=== PATIENT | female | born 1970 | race Caucasian/White ===

== ENCOUNTER → 2018-04-17 14:59 | Outpatient (CLI) | payer OTHER, SELFPAY | PROVIDERS: PCP Family Medicine; Visit Provider Internal Medicine Gastroenterology | DX: R19.7 Diarrhea, unspecified (principal) ==

== ENCOUNTER → 2018-04-18 14:44 | Outpatient (CLI) | payer OTHER, SELFPAY ==
[2018-04-18 17:55] LABS: Adenovirus F 40/41 Not Detected (Not Detect); Astrovirus Not Detected (Not Detect); Campylobacter Not Detected (Not Detect); Clostridium difficile toxin AB Not Detected (Not Detect); Cryptosporidium Not Detected (Not Detect); Cyclospora cayetanensis Not Detected (Not Detect); Entamoeba histolytica Not Detected (Not Detect); Enteroaggregative E.coli Not Detected (Not Detect); Enteropathogenic E.coli Not Detected (Not Detect); Enterotoxigenic E.coli It/st Not Detected (Not Detect); Giardia lamblia Not Detected (Not Detect); Norovirus GI/GII Not Detected (Not Detect); Plesiomonsa shigelloides Not Detected (Not Detect); Rotavirus A Not Detected (Not Detect); Salmonella Not Detected (Not Detect); Sapovirus Not Detected (Not Detect); Shiga-like toxin-prod E.coli Not Detected (Not Detect); Shigella/Enteroinvasive E.coli Not Detected (Not Detect); Vibrio Not Detected (Not Detect); Vibrio cholerae Not Detected (Not Detect); Yersinia enterocolitica Not Detected (Not Detect)
== END ==
PROVIDERS: Visit Provider Internal Medicine Gastroenterology
DX: R19.7 Diarrhea, unspecified (principal)
CPT/HCPCS: 87507

== ENCOUNTER → 2020-01-24 12:46 | Outpatient (CLI) | payer OTHER, SELFPAY ==
[2020-01-24 13:02] LABS: Add Manual Diff / Slide Review NO; Basophils Absolute Auto 0 /uL (0-100); Basophils Percent Auto 0.6 % (0-2); Eosinophils Absolute Auto 200 /uL (0-450); Eosinophils Percent Auto 2.8 % (2-4); Hematocrit 40.7 % (36-46); Hemoglobin 13.5 g/dL (12.0-16.0); Lymphocytes Absolute Auto 1600 /uL (1100-4500); Lymphocytes Percent Auto 20.4 % (25-40); Mean Corpuscular HGB Conc 33.3 % (30-36); Mean Corpuscular Hemoglobin 28.9 PG (26-34); Mean Corpuscular Volume 86.9 fL (80-100); Monocytes Absolute Auto 400 /uL (0-900); Monocytes Percent Auto 4.9 % (3-14); Neutrophils Absolute Auto 5500 /uL (1500-7000); Neutrophils Percent Auto 71.3 % (50-75); Platelet Count 199 X10^3/uL (150-400); Red Blood Cell Count 4.68 X10^6/uL (4.0-5.2); Red Cell Distribution Width 14.3 % (11.6-14.8); White Blood Cell Count 7.8 X10^3/uL (4.5-11.0)
[2020-01-24 13:14] LABS: Alanine Aminotransferase 13 IU/L (<35); Albumin 4.2 g/dL (3.5-5.0); Albumin Globulin Ratio 1.4 (1.0-2.8); Alkaline Phosphatase 82 U/L (38-126); Aspartate Aminotransferase 22 IU/L (14-36); BUN Creatinine Ratio 18.2 (6-22); Bilirubin Total 0.6 mg/dL (0.2-1.3); Blood Urea Nitrogen 12 mg/dL (7-17); Calcium 9.2 mg/dL (8.4-10.2); Carbon Dioxide 30 mmol/L (22-32); Chloride 104 mmol/L (98-107); Estimated Glomerular Filt Rate > 60.0 mL/min (>60); Globulin 2.9 g/dL (1.7-4.1); Glucose 94 mg/dL (70-100); HEMOLYSIS 18 (0-50); Potassium 3.8 mmol/L (3.4-5.1); Sodium 138 mmol/L (137-145); Total Protein 7.1 g/dL (6.3-8.2)
[2020-01-24 13:26] LABS: Troponin I < 0.012 ng/mL (0.01-0.034)
== END ==
PROVIDERS: PCP Family Medicine; Referring Provider Nurse Practitioner; Visit Provider Nurse Practitioner
DX: R42 Dizziness and giddiness (principal)
CPT/HCPCS: 36415; 80053; 84484; 85025

== ENCOUNTER 2020-01-26 12:51 | Outpatient (RCR) | payer OTHER, SELFPAY ==
--- NOTE | 2020-01-26 16:02 | PT.OIE ---
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) Past Medical History (Last Reviewed 01/12/18 @ 10:01 by Kirsten Rivera DO) Chicken pox (Resolved) Colitis (Chronic) Colon polyps (Resolved) Hayfever (Chronic) Ulcerative colitis (Resolved ~1989) Vaginal delivery (Resolved) Past Surgical History (Last Reviewed 01/12/18 @ 10:01 by Kirsten Rivera DO) History of esophagogastroduodenoscopy (EGD) (Resolved 09/18/12) History of intestinal surgery (Resolved 01/1969) Status post delivery (Resolved) Status post colonoscopy (Resolved 09/18/12) Visit Care Team Role Provider Type Kirsten Rivera DO Primary Care Provider Physician Specialty: [facility] Practice Address: [address] [place] [address], [place], [address] Email: [email or web address] Gen Sesay MD Attending Provider Physician Referring Provider Specialty: Ear, Nose, Throat Address: [address] [place] [address], [id number] Email: [email or web address] Initial Evaluation PT-OP-A Visit Information Start: 01/26/20 07:29 Freq: Status: Active Protocol: Document 01/26/20 13:02 MB (Rec: 01/26/20 13:18 MB [id number]) Out-Patient Physical Therapy Visit Information Visit Information Visit Type Initial Evaluation Visit Start Time 13:02 Visit Stop Time 13:52 Total Visit Minutes 50 Visit Number 1 Evaluation Information Evaluation Date 01/26/20 PT-OP-B Current Condition Start: 01/26/20 07:29 Freq: Status: Active Protocol: Document 01/26/20 13:02 MB (Rec: 01/26/20 13:18 MB [id number]) Current Condition History of Current Condition Onset Date 2.5 weeks ago Current Complaints Dizzy History of Current Condition Pt jumped in the water, felt water in her ears, then went to get her ears irrigated. She took antibiotic ear drops in her left ear for 9 days and felt great. Four days later, she had severe dizziness when jumping up to play with her dog. She reports spinning sensation. Pt went to see Dr. Sesay, ENT. He stated that her ears look good. She states that he recommended PT. Pt states that she feels that there is something in her ears . Pt takes Flonase spray and allergy medicine. She feels ear pressure. She reports vision changes when she used a patch behind her left ear. She did this three days. She felt cotton mouth. She has a history of sea sickness. Pt denies: numbness/tingling, vision changes, history of concussion, performance of sit -ups, anemia, B12 deficiency, weakness, hearing change, eye pressure changes, trouble swallowing, recent overhead lifting, tinnitus, history of whiplash and chiropractor care and TMJ (jaw problems), headache. Pt sleeps on her side and stomach. PT-OP-C Subjective Start: 01/26/20 07:29 Freq: Status: Active Protocol: Document 01/26/20 13:02 MB (Rec: 01/26/20 15:59 MB [id number]) OP-PT Subjective Patient Comments Patient Comments See history of current condition Patient Questionnaires Dizziness Handicap Inventory DHI Score 56 DHI Functional Impairment 40 to 59% Impaired (Score 40- 59) PT-OP-K Range of Motion Start: 01/26/20 07:29 Freq: Status: Active Protocol: Document 01/26/20 13:02 MB (Rec: 01/26/20 15:59 MB [id number]) Cervical Spine Range of Motion Cervical Spine Active Testing Position Sitting Comments All ranges WNLs PT-OP-M Strength Start: 01/26/20 07:29 Freq: Status: Active Protocol: Document 01/26/20 13:02 MB (Rec: 01/26/20 15:59 MB [id number]) Shoulder Strength Shoulder Manual Muscle Testing Left Flexion 5 Normal Abduction (C5) 5 Normal Right Flexion 5 Normal Abduction (C5) 5 Normal Elbow/Forearm Strength Elbow and Forearm Manual Muscle Testing Left Flexion (C6) 5 Normal Extension (C7) 5 Normal Right Flexion (C6) 5 Normal Extension (C7) 5 Normal PT-OP-O Vestibular Start: 01/26/20 07:29 Freq: Status: Active Protocol: Document 01/26/20 13:02 MB (Rec: 01/26/20 15:59 MB [id number]) Vestibular Assessment Visual Testing Smooth Pursuits Horizontal Normal Smooth Pursuits Vertical Normal Saccades Horizontal Normal Saccades Vertical Normal Gaze Evoked Nystagmus With Fixation Negative Thrust Head Positive Left Convergence Test WNL Spontaneous Nystagmus Negative Positional Testing Jaleesa-Hallpike Negative Left,Negative Right Rolling Test Negative Left,Negative Right Comments Vestibular Comments B finger to nose normal, B rapid supination and pronation normal. Pt's sacade delay with thrust left is very prolonged. Holding nostrils together and blowing into nose causes pt to feel air moving out of her right tear duct. She reports a history of this. Negative orthostatic hypotension testing with the following BP and HR in LUE: supine 111/74, 81; standing 117/81, 103; standing 30 sec 108/77, 100; standing 1' 102/ 77, 100; standing 2' 100/72, 103; standing 3' 111/79, 106 PT-OP-Q Treatments Start: 01/26/20 07:29 Freq: Status: Active Protocol: Document 01/26/20 13:02 MB (Rec: 01/26/20 15:59 MB [id number]) Self-Care/Home Management Treatment Education Other Education Extensive ed on anatomy and function of vestibular system, BPPV, VOR hypofunction findings, provided 4 handouts from the [employer] vestibular SIG regarding PT and the VOR, the balance system and unilateral vestibular hypofunction. Proper sleeping position with cervical and pillow support. PT-OP-T Assessment and Plan Start: 01/26/20 07:29 Freq: Status: Active Protocol: Document 01/26/20 13:02 MB (Rec: 01/26/20 15:59 MB [id number]) Physical Therapy Assessment Rehab Potential Rehabilitation Potential Good Evaluation Complexity Number of Personal Factors/Comorbidities 1-2 Number of Body Systems Impaired 1-2 Clinical Presentation at Evaluation Stable Impairments Impairments Balance,Posture,Vestibular Goals 3 Snf Goal (LTG) Pt will perform progressive HEP with I including VOR, balance and postural exercises to improve VOR function and posture by 03/12/2020. LTG Duration 6 weeks 2 Director Music Goal (LTG) Pt will perform WNLs on FGA to reflect normal balance by . LTG Duration 6 weeks 1 Snf Goal (LTG) Pt will present with a DHI score reflecting low perception of handicap to improve quality of life and safe return to work and normal activities by 03/12/2020. LTG Duration 6 weeks Assessment Summary Assessment Pt is a 50 y/o female presenting with onset of dizziness after diving into masters, feeling water in her ears, receiving ear irrigation with water and then receiving 9 days of antibiotic ear drops. Pt con't to report a feeling of needing to clean out her sinuses. She takes Flonase and an allergy pill at baseline. BPPV testing is negative today. Oculomotor and coordination tests are normal . Her BP does not drop enough to technically report orthostasis but it does drop and her HR increases to the low 100 BPM with rapid position change. She presents with significant saccade lag with left head thrust, indicating VOR hypofunction. She will benefit from PT for VOR, postural and balance training. A curious finding on exam is that when PT asks pt to hold nostrils and blow forcefully (to check for hydrops or fistula), pt reports air leaking through her right tear duct. She states this is normal for her. She may benefit from further ENT work-up regarding her complaints of fullness, allergies and this report. Balance testing deferred today d/t triaging pt needs. Will perform in future treatments. Physical Therapy Plan Frequency and Duration Frequency of Treatment 4 treatments Duration of Treatment 4 treatments Plan of Care Start Date 01/26/20 Plan of Care End Date 03/12/20 Therapeutic Interventions Therapeutic Interventions Balance Training,Canalithic Repositioning,Gait Training, Home Exercise Program,Manual Therapy,Neuromuscular Re- education,Patient/Caregiver Education,Self-Care/Home Management,Soft Tissue Mobilization,Taping, Therapeutic Activities, Therapeutic Exercises, Vestibular Rehabilitation Next Visit Focus/Plan Next Note Type Treatment Note Next Visit Plan DVA eye chart VOR testing and HEP, balance testing (FGA)
--- NOTE | 2020-01-26 16:02 | PT.OPPOC ---
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) Visit Care Team Role Provider Type Kirsten Rivera DO Primary Care Provider Physician Specialty: Family Practice Address: [address] [place] [address], [facility] [place], [address] Email: [email or web address] Gen Sesay MD Attending Provider Physician Referring Provider Specialty: Ear, Nose, Throat Address: [address] [place] [address], [id number] Email: [email or web address] Plan Of Care PT-OP-T Assessment and Plan Start: 01/26/20 07:29 Freq: Status: Active Protocol: Document 01/26/20 13:02 MB (Rec: 01/26/20 15:59 MB [id number]) Physical Therapy Assessment Rehab Potential Rehabilitation Potential Good Evaluation Complexity Number of Personal Factors/Comorbidities 1-2 Number of Body Systems Impaired 1-2 Clinical Presentation at Evaluation Stable Impairments Impairments Balance,Posture,Vestibular Goals 3 [facility] Goal (LTG) Pt will perform progressive HEP with I including VOR, balance and postural exercises to improve VOR function and posture by 03/12/2020. LTG Duration 6 weeks 2 [facility] Goal (LTG) Pt will perform WNLs on FGA to reflect normal balance by . LTG Duration 6 weeks 1 [employer] Goal (LTG) Pt will present with a DHI score reflecting low perception of handicap to improve quality of life and safe return to work and normal activities by 03/12/2020. LTG Duration 6 weeks Assessment Summary Assessment Pt is a 50 y/o female presenting with onset of dizziness after diving into masters, feeling water in her ears, receiving ear irrigation with water and then receiving 9 days of antibiotic ear drops. Pt con't to report a feeling of needing to clean out her sinuses. She takes Flonase and an allergy pill at baseline. BPPV testing is negative today. Oculomotor and coordination tests are normal . Her BP does not drop enough to technically report orthostasis but it does drop and her HR increases to the low 100 BPM with rapid position change. She presents with significant saccade lag with left head thrust, indicating VOR hypofunction. She will benefit from PT for VOR, postural and balance training. A curious finding on exam is that when PT asks pt to hold nostrils and blow forcefully (to check for hydrops or fistula), pt reports air leaking through her right tear duct. She states this is normal for her. She may benefit from further ENT work-up regarding her complaints of fullness, allergies and this report. Balance testing deferred today d/t triaging pt needs. Will perform in future treatments. Physical Therapy Plan Frequency and Duration Frequency of Treatment 4 treatments Duration of Treatment 4 treatments Plan of Care Start Date 01/26/20 Plan of Care End Date 03/12/20 Therapeutic Interventions Therapeutic Interventions Balance Training,Canalithic Repositioning,Gait Training, Home Exercise Program,Manual Therapy,Neuromuscular Re- education,Patient/Caregiver Education,Self-Care/Home Management,Soft Tissue Mobilization,Taping, Therapeutic Activities, Therapeutic Exercises, Vestibular Rehabilitation Next Visit Focus/Plan Next Note Type Treatment Note Next Visit Plan DVA eye chart VOR testing and HEP, balance testing (FGA) Plan of Care Dates Plan of Care Start Date 01/26/20 Plan of Care End Date 03/12/20 Electronically Signed by: Nehal Miner, PT 01/26/20 9024 Please Sign and Return: I have reviewed this Plan of Care and certify that the skilled therapy services above are required to meet the patient?s needs. Physician Signature Date Printed Name and Credentials Clinical Instructor Signature Printed Name and Credentials
--- NOTE | 2020-02-13 15:24 | PT.OPDS ---
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, [facility] [place], [address] Email: [email or web address] Gen Sesay MD Attending Provider Physician Referring Provider Specialty: Ear, Nose, Throat Address: [address] [place] [address], [address] Email: [email or web address] Visit Number Visit Number 1 Discharge Summary PT-OP-B Current Condition Start: 01/26/20 07:29 Freq: Status: Active Protocol: Document 01/26/20 13:02 MB (Rec: 01/26/20 13:18 MB [id number]) Current Condition History of Current Condition Onset Date 2.5 weeks ago Current Complaints Dizzy History of Current Condition Pt jumped in the water, felt water in her ears, then went to get her ears irrigated. She took antibiotic ear drops in her left ear for 9 days and felt great. Four days later, she had severe dizziness when jumping up to play with her dog. She reports spinning sensation. Pt went to see Dr. Sesay, ENT. He stated that her ears look good. She states that he recommended PT. Pt states that she feels that there is something in her ears . Pt takes Flonase spray and allergy medicine. She feels ear pressure. She reports vision changes when she used a patch behind her left ear. She did this three days. She felt cotton mouth. She has a history of sea sickness. Pt denies: numbness/tingling, vision changes, history of concussion, performance of sit -ups, anemia, B12 deficiency, weakness, hearing change, eye pressure changes, trouble swallowing, recent overhead lifting, tinnitus, history of whiplash and chiropractor care and TMJ (jaw problems), headache. Pt sleeps on her side and stomach. PT-OP-C Subjective Start: 01/26/20 07:29 Freq: Status: Active Protocol: Document 01/26/20 13:02 MB (Rec: 01/26/20 15:59 MB [id number]) OP-PT Subjective Patient Comments Patient Comments See history of current condition Patient Questionnaires Dizziness Handicap Inventory DHI Score 56 DHI Functional Impairment 40 to 59% Impaired (Score 40- 59) PT-OP-K Range of Motion Start: 01/26/20 07:29 Freq: Status: Active Protocol: Document 01/26/20 13:02 MB (Rec: 01/26/20 15:59 MB [id number]) Cervical Spine Range of Motion Cervical Spine Active Testing Position Sitting Comments All ranges WNLs PT-OP-M Strength Start: 01/26/20 07:29 Freq: Status: Active Protocol: Document 01/26/20 13:02 MB (Rec: 01/26/20 15:59 MB [id number]) Shoulder Strength Shoulder Manual Muscle Testing Left Flexion 5 Normal Abduction (C5) 5 Normal Right Flexion 5 Normal Abduction (C5) 5 Normal Elbow/Forearm Strength Elbow and Forearm Manual Muscle Testing Left Flexion (C6) 5 Normal Extension (C7) 5 Normal Right Flexion (C6) 5 Normal Extension (C7) 5 Normal PT-OP-O Vestibular Start: 01/26/20 07:29 Freq: Status: Active Protocol: Document 01/26/20 13:02 MB (Rec: 01/26/20 15:59 MB [id number]) Vestibular Assessment Visual Testing Smooth Pursuits Horizontal Normal Smooth Pursuits Vertical Normal Saccades Horizontal Normal Saccades Vertical Normal Gaze Evoked Nystagmus With Fixation Negative Thrust Head Positive Left Convergence Test WNL Spontaneous Nystagmus Negative Positional Testing Merlin-Hallpike Negative Left,Negative Right Rolling Test Negative Left,Negative Right Comments Vestibular Comments B finger to nose normal, B rapid supination and pronation normal. Pt's sacade delay with thrust left is very prolonged. Holding nostrils together and blowing into nose causes pt to feel air moving out of her right tear duct. She reports a history of this. Negative orthostatic hypotension testing with the following BP and HR in LUE: supine 111/74, 81; standing 117/81, 103; standing 30 sec 108/77, 100; standing 1' 102/ 77, 100; standing 2' 100/72, 103; standing 3' 111/79, 106 PT-OP-T Assessment and Plan Start: 01/26/20 07:29 Freq: Status: Active Protocol: Document 02/13/20 15:23 MB (Rec: 02/13/20 15:24 MB [id number]) Physical Therapy Plan Discharge Physical Therapy Discharge Reasons Patient Request Discharge Comments Pt offered appointment by front office and she states that she does not need anymore vestibular PT. Will d/c PT.
== END 2020-03-01 12:56 ==
LOC: PHYS 12:51
PROVIDERS: PCP Family Medicine; Referring Provider Otolaryngology; Visit Provider Otolaryngology
DX: H81.22 Vestibular neuronitis, left ear (principal)
CPT/HCPCS: 97162; 97535

== ENCOUNTER → 2020-02-26 15:27 | Outpatient (CLI) | payer OTHER, SELFPAY ==
--- NOTE | 2020-02-26 15:29 | DI.MG.S_ITS ---
BILATERAL DIGITAL SCREENING MAMMOGRAM 3D/2D WITH CAD: 02/26/2020 CLINICAL: Routine screening. Comparison is made to exams dated: 07/06/2015 mammogram, 08/22/2013 mammogram, and 04/22/2012 mammogram - [facility]. The tissue of both breasts is heterogeneously dense. This may lower the sensitivity of mammography. Current study was also evaluated with a Computer Aided Detection (CAD) system. No significant masses, calcifications, or other findings are seen in either breast. There has been no significant interval change. IMPRESSION: NEGATIVE There is no mammographic evidence of malignancy. A 1 year screening mammogram is recommended. This exam was interpreted at Station ID: [id number]. NOTE: For mammograms, a report in lay terms will be sent to the patient. Approximately 15% of breast malignancies will not be visualized mammographically. In the management of a palpable breast mass, a negative mammogram must not discourage biopsy of a clinically suspicious lesion. Electronically Signed By: Janak wu/daniel:02/26/2020 16:37:05 letter sent: Normal Exam ACR BI-RADS Category 1: Negative [id number]
== END ==
PROVIDERS: PCP Family Medicine; Referring Provider Family Medicine; Visit Provider Family Medicine
DX: Z12.31 Encounter for screening mammogram for malignant neoplasm of breast (principal)
CPT/HCPCS: 77063; 77067

== ENCOUNTER 2020-12-07 08:52 | Day surgery (SDC) | payer OTHER, SELFPAY ==
--- NOTE | 2020-12-07 | PATH_ITS ---
[facility] Accession Number: [id number] . 01 Material submitted: . PART A: colon - ASCENDING BIOPSY PART B: colon - TRANSVERSE BIOPSY PART C: colon - DESCENDING BIOPSY PART D: colon - SIGMOID BIOPSY PART E: rectum - RECTAL BIOPSY . 01 Clinical history: . SDC . 02 Diagnosis: A. Ascending Colon, Biopsy: Colonic mucosa with no significant diagnostic abnormality. Negative for active inflammation, granulomas, dysplasia, and malignancy. . B. Transverse Colon, Biopsy: Chronic colitis with moderate activity and focal erosion; please see comment. Negative for granulomata, dysplasia or malignancy. . C. Descending Colon, Biopsy: Chronic colitis with moderate activity. Negative for granulomata, dysplasia or malignancy. . D. Sigmoid Colon, Biopsy: Chronic colitis with moderate activity and focal erosion. Negative for granulomata, dysplasia or malignancy. . E. Rectum, Biopsy: Colonic mucosa with no significant diagnostic abnormality. Negative for active inflammation, granulomas, dysplasia, and malignancy. [facility] 12/10/2020 1144 Local . 02 Comment: The overall histologic findings are consistent with the clinical history of ulcerative colitis. . 02 Electronically signed: . Abimael Strickland MD, PhD, Pathologist NPI- [id number] . 01 Gross description: . Part A: ASCENDING BIOPSY: Received in formalin are multiple fragment(s) of bunch, soft tissue measuring 1.8 x 0.3 x 0.1 cm in aggregate submitted entirely in 1 cassette(s) Part B: TRANSVERSE BIOPSY: Received in formalin are 2 fragment(s) of bunch, soft tissue measuring 0.2 x 0.2 x 0.2 cm to 0.2 x 0.2 x 0.2 cm submitted entirely in 1 cassette(s) Part C: DESCENDING BIOPSY: Received in formalin are 2 fragment(s) of bunch, soft tissue measuring 0.3 x 0.1 x 0.1 cm to 0.1 x 0.1 x 0.1 cm submitted entirely in 1 cassette(s) Part D: SIGMOID BIOPSY: Received in formalin are 2 fragment(s) of bunch, soft tissue measuring 0.2 x 0.2 x 0.1 cm to 0.1 x 0.1 x 0.1 cm submitted entirely in 1 cassette(s) Part E: RECTAL BIOPSY: Received in formalin is 1 fragment(s) of bunch, soft tissue measuring 0.1 x 0.1 x 0.1 cm submitted entirely in 1 cassette(s) /AMI 12/08/2020 0805 Local . 02 Pathologist provided ICD-10: K51.00 . 02 CPT . 118858, [id number], 280277, [id number], 992189 Performed at: 01 [facility] [address] [facility], [place], [place] [id number] MD Janak Perdomo MD Phone: [phone] Performed at: 02 [facility] [address] [place], [place] [id number] MD Monet Woody MD Phone: [phone]
[2020-12-07 09:15] VITALS: BP 132/77; PULSE 87; RESP 18; TEMP 37.5; O2SAT 98
[2020-12-07] MEDS: SODIUM CHLORIDE 0.9% 1,000 ML 84 ML IV (09:43)
--- NOTE | 2020-12-07 09:55 | P.HP_ITS ---
History of Present Illness History of Present Illness Date Patient Seen: 12/07/20 Time Patient Seen: 09:55 Chief complaint: SDC Narrative: I reviewed recent office notes. Flaring symptoms. On mesalamine and 40mg prednisone. Patient History Medical History Chicken pox Colitis Colon polyps Hayfever Ulcerative colitis (~1989) Vaginal delivery Surgical History History of esophagogastroduodenoscopy (EGD) (09/18/12) History of intestinal surgery (01/1969) Status post delivery Status post colonoscopy (09/18/12) Comment: required anesthesia at last exam Family & Social History Family History Father Age: 77 Glaucoma High cholesterol Mother Myelodysplasia (myelodysplastic syndrome) Social History: household members family lives independently Yes Tobacco & Substance use: Smoking Status Never smoker alcohol intake never alcohol intake frequency holiday/special occasion Substance Use Type does not use Meds Home Medications and Allergies Home Medications Medication Instructions Recorded Confirmed Type vitamin B complex (B TID #0 02/14/16 01/12/20 History Complex-Vitamin B12) Lactobacillus acidophilus 1 tab PO TID #0 02/15/16 01/12/20 History mometasone 50 mcg/actuation nasal 2 spray INTRANASAL QDAY #17 gm 02/26/17 01/12/20 Rx spray (Nasonex) [id number] 3.5 4 drp OTIC (EAR) TID #10 ml 01/12/20 01/12/20 Rx mg/mL-10,000 unit/mL-1 % ear solution scopolamine base 1 mg over 3 days 1 patch TOPICAL Q72H #1 box 01/23/20 Rx transdermal patch (Transderm-Scop 1.5 mg transdermal patch () PROGESTERONE 100mg/ml 40 mg TOPICAL HS #30 day 07/30/20 Rx Biest 50/50 0.2 mg TOPICAL QAM #30 day 08/02/20 Rx Allergies Allergy/AdvReac Type Severity Reaction Status Date / Time No Known Drug Allergies Allergy Unknown Verified 01/12/20 11:01 Review of Systems Review of Systems ROS: Yes All systems reviewed with the patient and are negative except as otherwise documented Exam Vital Signs (past 8 hours): - 12/07/20 09:15 Temperature 99.5 F Pulse Rate 87 Respiratory Rate 18 Blood Pressure 132/77 Pulse Oximetry 98 Oxygen Delivery Method Room Air Const General: cooperative and comfortable Orientation: alert HENMT Head: normocephalic Ears: external ears normal Nose: external nose normal Face and sinus: normal facial exam Mouth: oral mucosae normal Eyes General: appearance normal, both eyes and all related structures Neck Neck: normal visual inspection Chest Chest: normal inspection of the chest Resp Effort & Inspection: normal respiratory effort Auscultation: clear to auscultation bilaterally Cardio Rate: regular rate Rhythm: regular rhythm Heart Sounds: no murmurs GI Inspection: normal to inspection Palpation: soft and No tender Auscultation: normal bowel sounds Skin General: no rashes or lesions noted and No jaundice Neuro General: patient alert and moves all extremities Cognition: normal cognition Speech: speech normal Extrem General: no pedal edema Psych Appearance: grossly normal Assessment & Plan Assessment & Plan narrative: Flaring Colitis. Colonoscopy to evaluate current status in anticipation of probable medication change to [facility]. I have requested anesthesia in light of prior failed procedures without anesthesia.
--- NOTE | 2020-12-07 09:58 | PM.PREOP ---
Pre-operative Note COVID-19 COVID-19 status: Negative Result date/Date tested (Pos, Neg/Pending): 12/05/20 Interval Note History & Physical reviewed/Exam performed by Physician: Yes Changes to H&P: No ASA Class (for procedural sedation): II
--- NOTE | 2020-12-07 11:18 | PM.OP.ENDO ---
Operative Date/Time/Diagnoses Date of procedure: 12/07/20 Time of procedure: 11:18 Pre-op diagnosis: Ulcerative colitis Post-op diagnosis: same Procedure & Clinicians Study performed: Colonoscopy with biopsies Same procedure as scheduled: Yes Indications: Flaring ulcerative colitis Surgeon: Benja Worthington Procedure Notes SCOAP/Timeout: Done Procedure in detail: After the risks and benefits were explained, written and verbal informed consent was obtained. The patient was brought into the procedure room and placed into the left lateral decubitus position. MAC was applied. Digital rectal examination was accomplished. The scope was introduced into the patient and advanced under direct visualization to the cecum as identified by the appendiceal orifice and ileocecal valve. The scope was slowly withdrawn to carefully examine the mucosa for any defects or lesions. Comprehensive imaging was accomplished throughout the rectum including the dentate line. The colon was decompressed, the scope was then removed from the patient who tolerated the procedure well. Scope withdrawal time: 11 minutes Sedation minutes: 33 Complications: none Impression: There was evidence of some mild patchy proctitis. Some of the areas in the rectum appeared to be reasonably spared likely as a consequence of her regular Rowasa enema therapy. From the rectosigmoid junction up to just beyond the splenic flexure and distal transverse there was evidence of moderate inflammation characterized by erythema exudates and some friability. The from the distal transverse all the way to cecum the mucosa appeared normal. The terminal ileum was interrogated and appeared normal. Segmental biopsies were acquired on withdrawal from the ascending, transverse (distally) descending, sigmoid, and rectum. Navigation all the way to cecum was extremely difficult. The patient has a very tortuous colon lay out. We used elements of abdominal pressure and the scope stiffening ketty. Endoscopic diagnosis 1. Mild to moderate active procto colitis 2. Normal-appearing terminal ileum 3. Normal-appearing right colon 4. Challenging navigation Post-procedure Plan for aftercare: 1. Await histopathology 2. Short-term follow-up GI clinic to discuss possible transition to Entyvio 3. In the interim continue mesalamine oral and rectal preparations 4. For now continue prednisone and initiate a taper as soon as is clinically possible. Follow up: weeks Disposition: PACU
[2020-12-07 11:23] VITALS: BP 121/77; PULSE 82; RESP 12; TEMP 37.1; O2SAT 99
[2020-12-07 11:40] VITALS: BP 115/76; PULSE 72; RESP 20; TEMP 36.7; O2SAT 98
--- NOTE | 2020-12-07 15:34 | SUR.PHASEII ---
Pt came straight to Phase [address] Prieto, pt arrived drowsy, no complaints. When pt ready to go ride called, belly soft and tolerated liquids.
== END 2020-12-07 11:50 | disposition home or self-care (01) ==
PROVIDERS: PCP Family Medicine; Referring Provider Internal Medicine Gastroenterology; Visit Provider Internal Medicine Gastroenterology
PROC: 0DJD8ZZ Inspection of Lower Intestinal Tract, Via Natural or Artificial Opening Endoscopic (ICD-10-PCS; CPT 45378; principal; 2020-12-07 10:00)
DX: K51.00 Ulcerative (chronic) pancolitis without complications (principal)
CPT/HCPCS: 45380; J2704

== ENCOUNTER → 2021-04-20 09:28 | Outpatient (CLI) | payer OTHER, SELFPAY | PROVIDERS: PCP Family Medicine; Visit Provider Specialist | DX: N13.30 Unspecified hydronephrosis (principal); R30.0 Dysuria; Z87.440 Personal history of urinary (tract) infections | CPT/HCPCS: 81002; 87086 ==

== ENCOUNTER → 2021-05-10 10:55 | Outpatient (CLI) | payer OTHER, SELFPAY ==
[2021-05-10 11:33] LABS: Add Manual Diff / Slide Review NO; Basophils Absolute Auto 100 /uL (0-100); Basophils Percent Auto 0.6 % (0-2); Eosinophils Absolute Auto 200 /uL (0-450); Eosinophils Percent Auto 1.6 % (2-4); Hematocrit 34.5 % (36-46); Hemoglobin 10.6 g/dL (12.0-16.0); Lymphocytes Absolute Auto 2000 /uL (1100-4500); Lymphocytes Percent Auto 13.3 % (25-40); Mean Corpuscular HGB Conc 30.6 % (30-36); Mean Corpuscular Hemoglobin 23.1 PG (26-34); Mean Corpuscular Volume 75.5 fL (80-100); Monocytes Absolute Auto 400 /uL (0-900); Monocytes Percent Auto 2.5 % (3-14); Neutrophils Absolute Auto 12500 /uL (1500-7000); Platelet Count 374 X10^3/uL (150-400); Red Blood Cell Count 4.56 X10^6/uL (4.0-5.2); Red Cell Distribution Width 16.8 % (11.6-14.8); White Blood Cell Count 15.2 X10^3/uL (4.5-11.0)
[2021-05-10 11:46] LABS: Alanine Aminotransferase 13 IU/L (<35); Albumin 3.9 g/dL (3.5-5.0); Albumin Globulin Ratio 1.3 (1.0-2.8); Alkaline Phosphatase 55 U/L (38-126); Aspartate Aminotransferase 19 IU/L (14-36); BUN Creatinine Ratio 19.4 (6-22); Bilirubin Total 0.5 mg/dL (0.2-1.3); Blood Urea Nitrogen 13 mg/dL (7-17); Calcium 9.3 mg/dL (8.4-10.2); Carbon Dioxide 31 mmol/L (22-32); Chloride 100 mmol/L (98-107); Estimated Glomerular Filt Rate > 60.0 mL/min (>60); Glucose 96 mg/dL (70-100); HEMOLYSIS 18 (0-50); Potassium 4.4 mmol/L (3.4-5.1); Sodium 134 mmol/L (137-145); Total Protein 6.9 g/dL (6.3-8.2)
== END ==
PROVIDERS: PCP Family Medicine; Referring Provider Internal Medicine; Visit Provider Internal Medicine
DX: K51.019 Ulcerative (chronic) pancolitis with unspecified complications (principal)
CPT/HCPCS: 36415; 80053; 85025

== ENCOUNTER → 2021-05-17 12:05 | Outpatient (CLI) | payer OTHER, SELFPAY ==
--- NOTE | 2021-05-17 12:06 | DI.NM.S_ITS ---
PROCEDURE: [place] RENAL FUNCTION W LASIX RADIOPHARMACEUTICAL: 9.7 mCi Tc-99m MAG3 IV and 40 mg furosemide IV. INDICATIONS: right hydronephrosis TECHNIQUE: The patient was hydrated orally before the examination was begun. After intravenous administration of Tc-99m MAG3, posterior abdominal radionuclide angiogram and sequential (1 minute each frame) renal images were obtained. A time-activity curve for each kidney was generated and analyzed. To evaluate for obstruction, the patient was given 40 mg furosemide via slow intravenous injection after the start of the examination. Sequential images were obtained for up to an additional 20 minutes. COMPARISON: Outside Facility, , CT ABDOMEN/PELVIS WITH CONTRAST, 03/07/2021, 15:40. [facility], [place], RENAL IMAGING WITH LASIX, 03/22/2016, 10:18. FINDINGS: Perfusion: There is normal vascular flow to both kidneys. Morphology: There is moderate right hydronephrosis. The ureters and bladder fill with tracer, and appear normal. Function: Both kidneys demonstrate normal cortical tracer uptake, with [id number] activity ranging from 3 to 5 minutes. The right kidney contributes 49.5% of total renal function. The left kidney contributes 50.1% of total renal function. This is compared to 51.7% and 48.3. Lasix stimulation: After diuretic administration, there is prompt clearance of tracer activity from the renal collecting systems in both kidneys. The half-time of emptying of tracer activity from the right pelvicaliceal system is unable to be calculated as at the end of imaging at head not achieved time of half max. The half-time of emptying from the left pelvicaliceal system is 5.1 minutes compared to 7.7 minutes on prior exam. Normal emptying half-times are less than 10 minutes; borderline ranges are from 10 to 20 minutes. IMPRESSION: 1. 49.5% right and 50.5% left renal function. 2. Half-time of tracer emptying was unable to be calculated on right as described above. This is considered greater emptying. 3. Moderate right hydronephrosis. Dictated by: Lanie Early M.D. on 05/17/2021 at 20:35 Approved by: Lanie Early M.D. on 05/17/2021 at 20:39
== END ==
PROVIDERS: PCP Family Medicine; Referring Provider Specialist; Visit Provider Specialist
DX: N13.30 Unspecified hydronephrosis (principal); Z87.440 Personal history of urinary (tract) infections
CPT/HCPCS: 78708; A9562

== ENCOUNTER → 2021-05-23 14:13 | Outpatient (CLI) | payer OTHER, SELFPAY ==
--- NOTE | 2021-05-23 14:14 | DI.US.S_ITS ---
PROCEDURE: US ABDOMEN LIMITED INDICATIONS: ABNORMAL LABS TECHNIQUE: Real-time focused scanning was performed of the abdomen, with image documentation. COMPARISON: Outside Facility, [place], CT ABDOMEN/PELVIS WITH CONTRAST, 03/07/2021, 15:40. FINDINGS: The liver is normal in size and echogenicity. Hepatopetal flow is seen in the main portal vein. The gallbladder appears contracted. No gallstones are seen. No pericholecystic fluid or sonographic Ordonez sign. The intrahepatic bile ducts are within normal limits. The common bile duct is borderline in size, measuring up to 7 mm in diameter. Right-sided hydronephrosis is noted, as seen on CT from 03/07/2021. IMPRESSION: 1. Contracted appearance of the gallbladder without gallstones or additional signs of active inflammation. 2. Borderline size of the common bile duct is nonspecific. If there are clinical or laboratory signs of biliary obstruction, an MRCP could be obtained for further evaluation. 3. Right-sided hydronephrosis, not significantly changed when compared to the CT from 03/07/2021. Dictated by: Delvis Rudolph M.D. on 05/23/2021 at 18:24 Approved by: Delvis Rudolph M.D. on 05/23/2021 at 18:31
[2021-05-23 16:52] LABS: Alanine Aminotransferase 163 IU/L (<35); Albumin 3.9 g/dL (3.5-5.0); Albumin Globulin Ratio 1.4 (1.0-2.8); Alkaline Phosphatase 270 U/L (38-126); Aspartate Aminotransferase 50 IU/L (14-36); Bilirubin Total 0.3 mg/dL (0.2-1.3); Bilirubin Unconjugated 0.3 mg/dL (0.0-1.1); Globulin 2.7 g/dL (1.7-4.1); HEMOLYSIS < 15 (0-50); Total Protein 6.6 g/dL (6.3-8.2)
[2021-05-24 04:11] LABS: Immunoglobulin G, Quantitative 776 mg/dL (586-1602)
[2021-05-25 09:17] LABS: Smooth Muscle Antibody 15 Units (0-19)
[2021-05-25 22:07] LABS: ANA Screen, IFA Positive (.)
== END ==
PROVIDERS: PCP Family Medicine; Referring Provider Internal Medicine; Visit Provider Internal Medicine
DX: N13.30 Unspecified hydronephrosis (principal); R79.89 Other specified abnormal findings of blood chemistry
CPT/HCPCS: 36415; 76705; 80076; 82784; 83516; 86038

== ENCOUNTER → 2021-07-27 12:29 | Outpatient (CLI) | payer OTHER, SELFPAY ==
[2021-07-29 16:09] LABS: Calprotectin, Stool 189 ug/g (0-120)
== END ==
PROVIDERS: PCP Family Medicine; Referring Provider Internal Medicine; Visit Provider Internal Medicine
DX: K52.9 Noninfective gastroenteritis and colitis, unspecified (principal)
CPT/HCPCS: 83993

== ENCOUNTER → 2021-09-08 12:29 | Outpatient (CLI) | payer OTHER, SELFPAY ==
[2021-09-08 16:35] LABS: Campylobacter Not Detected (Not Detect); Clostridium difficile toxin AB Detected (Not Detect); Enteroaggregative E.coli Not Detected (Not Detect); Enteropathogenic E.coli Not Detected (Not Detect); Enterotoxigenic E.coli It/st Not Detected (Not Detect); Plesiomonsa shigelloides Not Detected (Not Detect); Salmonella Not Detected (Not Detect); Vibrio Not Detected (Not Detect); Vibrio cholerae Not Detected (Not Detect); Yersinia enterocolitica Not Detected (Not Detect)
[2021-09-08 16:36] LABS: Adenovirus F 40/41 Not Detected (Not Detect); Astrovirus Not Detected (Not Detect); Cryptosporidium Not Detected (Not Detect); Cyclospora cayetanensis Not Detected (Not Detect); Entamoeba histolytica Not Detected (Not Detect); Giardia lamblia Not Detected (Not Detect); Norovirus GI/GII Not Detected (Not Detect); Rotavirus A Not Detected (Not Detect); Sapovirus Not Detected (Not Detect); Shiga-like toxin-prod E.coli Not Detected (Not Detect); Shigella/Enteroinvasive E.coli Not Detected (Not Detect)
== END ==
PROVIDERS: PCP Family Medicine; Referring Provider Internal Medicine; Visit Provider Internal Medicine
DX: K51.011 Ulcerative (chronic) pancolitis with rectal bleeding (principal)
CPT/HCPCS: 87507

== ENCOUNTER → 2021-09-27 16:37 | Outpatient (CLI) | payer OTHER, SELFPAY ==
[2021-09-27 17:50] LABS: Alanine Aminotransferase 12 IU/L (<35); Albumin 3.5 g/dL (3.5-5.0); Albumin Globulin Ratio 1.1 (1.0-2.8); Alkaline Phosphatase 74 U/L (38-126); Aspartate Aminotransferase 14 IU/L (14-36); BUN Creatinine Ratio 19.7 (6-22); Bilirubin Total 0.2 mg/dL (0.2-1.3); Blood Urea Nitrogen 12 mg/dL (7-17); Calcium 8.8 mg/dL (8.4-10.2); Carbon Dioxide 30 mmol/L (22-32); Chloride 100 mmol/L (98-107); Cholesterol 233 mg/dL (140-199); Estimated Glomerular Filt Rate > 60 mL/min (>60); Globulin 3.2 g/dL (1.7-4.1); Glucose 128 mg/dL (70-100); HDL Cholesterol 76 mg/dL (40-60); HEMOLYSIS < 15 (0-50); LDL Cholesterol Calculated 123 mg/dL (<100); Potassium 4.6 mmol/L (3.4-5.1); Sodium 132 mmol/L (137-145); Total Protein 6.7 g/dL (6.3-8.2); Triglycerides 172 mg/dL (35-150)
[2021-09-27 17:52] LABS: Add Manual Diff / Slide Review NO; Basophils Absolute Auto 0 /uL (0-100); Basophils Percent Auto 0.2 % (0-2); Eosinophils Absolute Auto 0 /uL (0-450); Eosinophils Percent Auto 0.1 % (2-4); Hematocrit 30.5 % (36-46); Hemoglobin 9.5 g/dL (12.0-16.0); Lymphocytes Absolute Auto 2400 /uL (1100-4500); Mean Corpuscular HGB Conc 31.1 % (30-36); Monocytes Absolute Auto 500 /uL (0-900); Monocytes Percent Auto 5.3 % (3-14); Neutrophils Absolute Auto 7300 /uL (1500-7000); Neutrophils Percent Auto 71.4 % (50-75); Platelet Count 436 X10^3/uL (150-400); Red Blood Cell Count 4.12 X10^6/uL (4.0-5.2); Red Cell Distribution Width 17.1 % (11.6-14.8); White Blood Cell Count 10.2 X10^3/uL (4.5-11.0)
[2021-09-27 18:32] LABS: High Sensitivity CRP - Cardiac 30.3 mg/L (1.0-3.0)
[2021-09-27 18:45] LABS: C-Reactive Protein Quant 2.4 mg/dL (<1.0)
== END ==
PROVIDERS: PCP Family Medicine; Referring Provider Internal Medicine; Visit Provider Internal Medicine
DX: K51.019 Ulcerative (chronic) pancolitis with unspecified complications (principal)
CPT/HCPCS: 36415; 80053; 80061; 85025; 86140

== ENCOUNTER → 2021-10-28 09:01 | Outpatient (CLI) | payer OTHER, SELFPAY ==
[2021-10-28 09:54] LABS: Add Manual Diff / Slide Review NO; Basophils Absolute Auto 0 /uL (0-100); Basophils Percent Auto 0.5 % (0-2); Eosinophils Absolute Auto 100 /uL (0-450); Eosinophils Percent Auto 1.5 % (2-4); Hematocrit 32.5 % (36-46); Hemoglobin 10.5 g/dL (12.0-16.0); Lymphocytes Absolute Auto 2900 /uL (1100-4500); Lymphocytes Percent Auto 40.7 % (25-40); Mean Corpuscular HGB Conc 32.3 % (30-36); Mean Corpuscular Hemoglobin 23.8 PG (26-34); Mean Corpuscular Volume 73.5 fL (80-100); Monocytes Absolute Auto 600 /uL (0-900); Monocytes Percent Auto 8.7 % (3-14); Neutrophils Absolute Auto 3500 /uL (1500-7000); Neutrophils Percent Auto 48.6 % (50-75); Platelet Count 294 X10^3/uL (150-400); Red Blood Cell Count 4.42 X10^6/uL (4.0-5.2); Red Cell Distribution Width 16.8 % (11.6-14.8); White Blood Cell Count 7.2 X10^3/uL (4.5-11.0)
[2021-10-28 16:31] LABS: Campylobacter Not Detected (Not Detect)
[2021-10-28 16:32] LABS: Adenovirus F 40/41 Not Detected (Not Detect); Astrovirus Not Detected (Not Detect); Clostridium difficile toxin AB Detected (Not Detect); Cryptosporidium Not Detected (Not Detect); Cyclospora cayetanensis Not Detected (Not Detect); Entamoeba histolytica Not Detected (Not Detect); Enteroaggregative E.coli Not Detected (Not Detect); Enteropathogenic E.coli Not Detected (Not Detect); Enterotoxigenic E.coli It/st Not Detected (Not Detect); Giardia lamblia Not Detected (Not Detect); Norovirus GI/GII Not Detected (Not Detect); Plesiomonsa shigelloides Not Detected (Not Detect); Rotavirus A Not Detected (Not Detect); Salmonella Not Detected (Not Detect); Sapovirus Not Detected (Not Detect); Shiga-like toxin-prod E.coli Not Detected (Not Detect); Shigella/Enteroinvasive E.coli Not Detected (Not Detect); Vibrio Not Detected (Not Detect); Vibrio cholerae Not Detected (Not Detect); Yersinia enterocolitica Not Detected (Not Detect)
[2021-10-29 04:28] LABS: Alanine Aminotransferase 12 IU/L (<35); Albumin 3.9 g/dL (3.5-5.0); Albumin Globulin Ratio 1.3 (1.0-2.8); Alkaline Phosphatase 71 U/L (38-126); Aspartate Aminotransferase 21 IU/L (14-36); BUN Creatinine Ratio 21.1 (6-22); Bilirubin Total 0.5 mg/dL (0.2-1.3); Blood Urea Nitrogen 15 mg/dL (7-17); Calcium 8.9 mg/dL (8.4-10.2); Carbon Dioxide 25 mmol/L (22-32); Chloride 105 mmol/L (98-107); Estimated Glomerular Filt Rate > 60 mL/min (>60); Globulin 3.1 g/dL (1.7-4.1); Glucose 88 mg/dL (70-100); HEMOLYSIS < 15 (0-50); Potassium 4.3 mmol/L (3.4-5.1); Sodium 138 mmol/L (137-145)
[2021-10-30 15:29] LABS: C-Reactive Protein Quant 0.9 mg/dL (<1.0)
[2021-10-31 13:33] LABS: C difficie Toxins A and B, EIA Negative (Negative)
[2021-11-02 11:00] LABS: Calprotectin, Stool 320 ug/g (0-120)
== END ==
PROVIDERS: PCP Family Medicine; Referring Provider Internal Medicine; Visit Provider Internal Medicine
DX: K51.011 Ulcerative (chronic) pancolitis with rectal bleeding (principal)
CPT/HCPCS: 36415; 80053; 83993; 85025; 86140; 87324; 87507

== ENCOUNTER → 2022-01-20 07:32 | Outpatient (CLI) | payer OTHER, SELFPAY ==
[2022-01-26 06:57] LABS: Calprotectin, Stool 1739 ug/g (0-120)
== END ==
PROVIDERS: PCP Family Medicine; Referring Provider Internal Medicine; Visit Provider Internal Medicine
DX: K51.011 Ulcerative (chronic) pancolitis with rectal bleeding (principal)
CPT/HCPCS: 83993

== ENCOUNTER → 2022-01-20 07:35 | Outpatient (CLI) | payer OTHER, SELFPAY ==
--- NOTE | 2022-01-20 15:45 | DI.NM.S_ITS ---
PROCEDURE: [place] RENAL FUNCTION W LASIX RADIOPHARMACEUTICAL: 10.2 mCi Tc-99m MAG3 IV and 40 mg furosemide IV. INDICATIONS: hydronephrosis of right kidney TECHNIQUE: The patient was hydrated orally before the examination was begun. After intravenous administration of Tc-99m MAG3, posterior abdominal radionuclide angiogram and sequential (1 minute each frame) renal images were obtained. A time-activity curve for each kidney was generated and analyzed. To evaluate for obstruction, the patient was given 40 mg furosemide via slow intravenous injection after the start of the examination. Sequential images were obtained for up to an additional 20 minutes. COMPARISON: [place], [place], [place] RENAL FUNCTION W LASIX, 05/17/2021, 12:56. FINDINGS: Perfusion: There is normal vascular flow to both kidneys. Morphology: Both kidneys are normal in size and shape. The left collecting system is dilated as before. The bladder fills with radiotracer and appears normal. Function: The left kidney demonstrates normal cortical tracer uptake, with ctrz-mg-uark activity ranging from 3 to 5 minutes. The right kidney demonstrates persistently delayed time to peak activity, now at about 9 minutes, previously 8 minutes. The right kidney contributes 47% of function. The left kidney contributes 53% of function. Lasix stimulation: After diuretic administration, there is prompt clearance of tracer activity from the renal collecting systems in the left kidney. The half-time of emptying of tracer activity from the right pelvicaliceal system is 15 minutes. The half-time of emptying from the left pelvicaliceal system is 9 minutes. Normal emptying half-times are less than 10 minutes; borderline ranges are from 10 to 20 minutes. IMPRESSION: Split function is within normal range, 47% on the right and 53% on the left. Dilated right collecting system again seen. Compared to prior imaging in May of 2021, improved response to Lasix in the right kidney, with emptying time now in the borderline range. Dictated by: Augie Gates M.D. on 01/23/2022 at 9:54 Approved by: Augie Gates M.D. on 01/23/2022 at 9:59
== END ==
PROVIDERS: PCP Family Medicine; Referring Provider Specialist; Visit Provider Specialist
DX: N13.30 Unspecified hydronephrosis (principal); K51.011 Ulcerative (chronic) pancolitis with rectal bleeding
CPT/HCPCS: 78708; 83993; A9562

== ENCOUNTER → 2022-05-31 13:57 | Outpatient (CLI) | payer OTHER, SELFPAY ==
[2022-05-31 15:11] LABS: Add Manual Diff / Slide Review NO; Basophils Absolute Auto 0 /uL (0-100); Basophils Percent Auto 0.4 % (0-2); Eosinophils Absolute Auto 0 /uL (0-450); Eosinophils Percent Auto 0.7 % (2-4); Hematocrit 34.7 % (36-46); Hemoglobin 11.2 g/dL (12.0-16.0); Lymphocytes Absolute Auto 2700 /uL (1100-4500); Lymphocytes Percent Auto 54.6 % (25-40); Mean Corpuscular HGB Conc 32.2 % (30-36); Mean Corpuscular Hemoglobin 24.9 PG (26-34); Mean Corpuscular Volume 77.2 fL (80-100); Monocytes Absolute Auto 400 /uL (0-900); Monocytes Percent Auto 7.7 % (3-14); Neutrophils Absolute Auto 1800 /uL (1500-7000); Neutrophils Percent Auto 36.6 % (50-75); Platelet Count 205 X10^3/uL (150-400); Red Cell Distribution Width 24.8 % (11.6-14.8); White Blood Cell Count 4.9 X10^3/uL (4.5-11.0)
[2022-05-31 15:29] LABS: Anisocytosis 2+; Microcytosis 1+
[2022-05-31 16:11] LABS: Alkaline Phosphatase 46 U/L (38-126); Aspartate Aminotransferase 29 IU/L (14-36); BUN Creatinine Ratio 22.9 (6-22); Bilirubin Total 0.5 mg/dL (0.2-1.3); Blood Urea Nitrogen 16 mg/dL (7-17); Calcium 9.3 mg/dL (8.4-10.2); Carbon Dioxide 28 mmol/L (22-32); Chloride 99 mmol/L (98-107); Estimated Glomerular Filt Rate > 60 mL/min (>60); Glucose 81 mg/dL (70-100); HDL Cholesterol 98 mg/dL (40-60); HEMOLYSIS < 15 (0-50); Sodium 136 mmol/L (137-145); Triglycerides 85 mg/dL (35-150)
[2022-05-31 16:13] LABS: HEMOLYSIS < 15 (0-50); Iron 114 ug/dL (37-170)
[2022-05-31 16:14] LABS: Alanine Aminotransferase 23 IU/L (<35)
[2022-05-31 16:16] LABS: High Sensitivity CRP - Cardiac < 0.3 mg/L (1.0-3.0)
[2022-05-31 16:17] LABS: Cholesterol 352 mg/dL (140-199); LDL Cholesterol Calculated 237 mg/dL (<100)
[2022-05-31 16:23] LABS: Percent Iron Saturation 30 % (15-50); Total Iron Binding Capacity 375 ug/dL (265-497); Transferrin 301 mg/dL (206-381)
[2022-05-31 16:48] LABS: Ferritin 11 ng/mL (11-264)
[2022-05-31 16:50] LABS: Vitamin D 25 Hydroxy (D3) 72.4 ng/mL (30.0-100.0)
[2022-05-31 17:20] LABS: Folate 18.3 ng/mL (2.76-20.0); Vitamin B12 682 pg/mL (239-931)
[2022-06-02 16:36] LABS: Albumin 4.5 g/dL (3.5-5.0); Albumin Globulin Ratio 1.8 (1.0-2.8); Globulin 2.5 g/dL (1.7-4.1)
== END ==
PROVIDERS: PCP Family Medicine; Referring Provider Internal Medicine; Visit Provider Internal Medicine
DX: K51.311 Ulcerative (chronic) rectosigmoiditis with rectal bleeding (principal)
CPT/HCPCS: 36415; 80053; 80061; 82306; 82607; 82728; 82746; 83540; 83550; 85025; 86140

== ENCOUNTER → 2022-06-08 08:08 | Outpatient (CLI) | payer OTHER, SELFPAY ==
[2022-06-08 08:56] LABS: HDL Cholesterol 109 mg/dL (40-60); Triglycerides 53 mg/dL (35-150)
[2022-06-08 09:04] LABS: Cholesterol 361 mg/dL (140-199); LDL Cholesterol Calculated 241 mg/dL (<100)
== END ==
PROVIDERS: PCP Family Medicine; Referring Provider Family Medicine; Visit Provider Family Medicine
DX: E78.5 Hyperlipidemia, unspecified (principal)
CPT/HCPCS: 36415; 80061

== ENCOUNTER 2022-10-12 10:03 | Emergency (ER) | payer OTHER, SELFPAY ==
[2022-10-12 10:05] VITALS: BP 123/69; PULSE 79; RESP 14; TEMP 36.5; O2SAT 99; BMI 21.6
--- NOTE | 2022-10-12 11:53 | ED_ITS ---
HPI - Extremity Problem <Saira Olivares PA-C - Last Filed: 10/12/22 18:38> General Chief complaint: Extremity Problem,Nontraumatic Stated complaint: R/Arm pain Time Seen by Provider: 10/12/22 10:57 Source: patient Mode of arrival: Ambulatory History of Present Illness HPI Narrative: 52-year-old woman presents with worsening right shoulder and right arm pain that has been going on for nearly 2 months. Symptoms have been increasing and worsening over the past few weeks. Patient states she originally injured herself when she was doing dips exercising with her daughter and felt a sudden pop in her sternum on the right side up high she stated that she had pain in that area and across her right chest afterwards for about a month? babied it and things seemed initially to be improving but then she started developing pain in her right shoulder and her right arm as well as reduced strength. She states she has tried massage, has seen physical therapy which was helpful during the actual therapy but quite quite painful the day after, she has also tried baclofen and Tylenol she can not take very many NSAIDs because she has a history of ulcerative colitis. She was seen by urgent care/walk-in clinic about a week ago but did not have any imaging done. She does have an appointment with her primary care provider tomorrow for further evaluation. Currently she is endorsing severe pain in her axilla on the right and her right forearm up high below her elbow. She is unsure if this is muscle pain or not she states that the pain feels ?deep and it is a constant ache?. She also states that she sometimes gets more intense pains when she uses her arm, she states ?I basically have not been using my arm for the past week or so because it hurts too much. She denies fevers, chills, numbness or tingling of the affected extremity or any other symptoms. Related Data Home Medications Medication Instructions Recorded Confirmed upadacitinib 30 mg tablet,extended 30 mg PO DAILY 06/08/22 10/02/22 release 24 hr (Rinvoq) Previous Rx's Medication Instructions Recorded mometasone 50 mcg/actuation nasal 2 spray intranasal QDAY ##17 02/26/17 spray (Nasonex) Testosterone cream 0.2mg See Rx Instructions .Route 08/31/21 .COMPLEX #30 grams estradiol 0.075 mg/24 hr weekly 1 patch transdermal QWEEK 08/31/21 transdermal patch Menopause symptoms #4 ea scopolamine base 1 mg over 3 days 1 patch topical Q72H #4 ea 03/20/22 transdermal patch (Transderm-Scop) CMP Biest 50:50 Cream 1 mg/ml and See Rx Instructions .Route 04/20/22 0.3 mg Testosterone .COMPLEX #30 grams progesterone micronized 100 mg See Rx Instructions .Route 08/21/22 capsule .COMPLEX #30 caps baclofen 5 mg tablet 5 mg PO TID #20 tabs 10/02/22 baclofen 10 mg tablet 10 mg PO TID 10 days #30 tabs 10/12/22 lidocaine 5 % topical ointment 1 applic topical TID PRN pain 14 10/12/22 days #30 grams Allergies Allergy/AdvReac Type Severity Reaction Status Date / Time No Known Drug Allergies Allergy Unknown Verified 10/12/22 10:05 Review of Systems <Saira Olivares PA-C - Last Filed: 10/12/22 18:38> Review of Systems Narrative: See HPI Patient History <Saira Olivares PA-C - Last Filed: 10/12/22 18:38> Medical History Chicken pox Colitis Colon polyps Hayfever History of UTI Hydronephrosis of right kidney Ulcerative colitis (~1989) Vaginal delivery Surgical History History of esophagogastroduodenoscopy (EGD) (09/18/12) History of intestinal surgery (01/1969) Status post delivery Status post colonoscopy (09/18/12) Family History Father Age: 79 Glaucoma High cholesterol Mother Myelodysplasia (myelodysplastic syndrome) Social History marital status: number of children: 3 household members: family lives independently: Yes education level: master's degree occupational status: employed Smoking Status: Never smoker alcohol intake: never substance use type: does not use Smoking Status: Never smoker alcohol intake frequency: holidays/special occasions only Substance Use Type: does not use Exam <Saira Olivares PA-C - Last Filed: 10/12/22 18:38> Narrative Exam Narrative: GENERAL: [52] year old patient appears stated age. Well-developed patient, in mild distress. HEAD: Atraumatic. Normocephalic. EYES: Mild exophthalmos, Pupils equal round and reactive. Extraocular motions intact. No scleral icterus. Slight bilateral injection noted (2nd to crying) no drainage. ENT: Nose without bleeding, purulent drainage. Throat without erythema, tonsillar hypertrophy or exudate. Airway patent. NECK: Trachea midline. Non tender CARDIOVASCULAR: Regular rate and rhythm without murmurs, gallops, or rubs. RESPIRATORY: Clear to auscultation. Breath sounds equal bilaterally. No wheezes, rales, or rhonchi. GASTROINTESTINAL: Abdomen soft, non-tender, nondistended. EXTREMITIES/chest wall: Patient's right arm is held at 90? 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 Skin of bilateral upper extremities is pink, warm, equal bilateral 2+ radial pulses. No erythema, edema or joint tenderness. There is no tenderness with palpation of the clavicle, there is slight discomfort with palpation over the sternoclavicular junction superiorly on the right side, no bony tenderness or masses noted of the anterior upper ribs or sternum. BACK: There is notable rightward scoliosis of the thoracic spine, the right scapula is slightly winged/raised from her back. There is tenderness and tightness over the trapezius muscles and the paraspinal muscles of the neck particularly on the right. No midline spinous process tenderness deformity or step-offs. Otherwise Nontender without deformity or crepitance. No flank tenderness. NEURO: AOx3. SKIN: No rash or erythema of visible areas Initial Vital Signs Initial Vital Signs: Vital Signs Temperature 97.7 F 10/12/22 10:05 Pulse Rate 79 10/12/22 10:05 Respiratory Rate 14 10/12/22 10:05 Blood Pressure 123/69 10/12/22 10:05 Pulse Oximetry 99 10/12/22 10:05 Oxygen Delivery Method Room Air 10/12/22 10:05 <DO Michael Whitehead Last Filed: 10/12/22 18:59> Initial Vital Signs Initial Vital Signs: Vital Signs Temperature 97.7 F 10/12/22 10:05 Pulse Rate 79 10/12/22 10:05 Respiratory Rate 14 10/12/22 10:05 Blood Pressure 123/69 10/12/22 10:05 Pulse Oximetry 99 10/12/22 10:05 Oxygen Delivery Method Room Air 10/12/22 10:05 Course <Saira Olivares PA-C - Last Filed: 10/12/22 18:38> Orders Ordered: ED Orders 10/12/22 12:24 CT cervical spine wo con Stat US periph venous up extrem rt Stat 10/12/22 12:28 XR ribs RT min 3V w CXR1V Stat 10/12/22 13:05 CBC Auto Diff [Complete Blood Count AUTO DIFF] Stat CMP [Comprehensive Metabolic Panel] Stat Discontinued Medications Ketorolac Tromethamine (Ketorolac 30 Mg/Ml Vial) 15 mg IM NOW ONE Stop: 10/12/22 12:16 Last Admin: 10/12/22 12:23 Dose: 15 mg Documented By: RANDY Vital Signs Vital signs: Vital Signs - 8 hr 10/12/22 14:34 Pulse Rate 67 Respiratory Rate 16 Blood Pressure 113/73 Pulse Oximetry 100 Oxygen Delivery Method Room Air <DO Michael Whitehead Last Filed: 10/12/22 18:59> Orders Ordered: ED Orders 10/12/22 12:24 CT cervical spine wo con Stat US periph venous up extrem rt Stat 10/12/22 12:28 XR ribs RT min 3V w CXR1V Stat 10/12/22 13:05 CBC Auto Diff [Complete Blood Count AUTO DIFF] Stat CMP [Comprehensive Metabolic Panel] Stat Discontinued Medications Ketorolac Tromethamine (Ketorolac 30 Mg/Ml Vial) 15 mg IM NOW ONE Stop: 10/12/22 12:16 Last Admin: 10/12/22 12:23 Dose: 15 mg Documented By: RANDY Vital Signs Vital signs: Vital Signs - 8 hr 10/12/22 14:34 Pulse Rate 67 Respiratory Rate 16 Blood Pressure 113/73 Pulse Oximetry 100 Oxygen Delivery Method Room Air MDM - Extremity (Nontraumatic) <Saira Olivares PA-C - Last Filed: 10/12/22 18:38> Differential Diagnosis Differential diagnosis: Likely deep venous thrombosis of upper extremity and other (Sprain, strain, costochondritis, muscle spasm) Lab Data 10/12/22 13:05 10/12/22 13:05 Labs: Lab Results 10/12/22 10/12/22 Range/Units 13:05 13:05 WBC 6.2 (4.5-11.0) X10^3/uL RBC 4.46 (4.0-5.2) X10^6/uL Hgb 13.2 (12.0-16.0) g/dL Hct 39.6 (36-46) % MCV 88.8 (80-100) fL MCH 29.7 (26-34) PG MCHC 33.5 (30-36) % RDW 16.2 H (11.6-14.8) % Plt Count 212 (150-400) X10^3/uL Neut % (Auto) 57.9 (50-75) % Lymph % (Auto) 32.2 (25-40) % [place] % (Auto) 8.6 (3-14) % Eos % (Auto) 0.8 L (2-4) % Baso % (Auto) 0.5 (0-2) % Neut # (Auto) 3600 (1875-3539) /uL Lymph # (Auto) 2000 (0604-1317) /uL [place] # (Auto) 500 (0-900) /uL Eos # (Auto) 0 (0-450) /uL Baso # (Auto) 0 (0-100) /uL Sodium 135 L (137-145) mmol/L Potassium 4.0 (3.4-5.1) mmol/L Chloride 102 (98-107) mmol/L Carbon Dioxide 28 (22-32) mmol/L BUN 20 H (7-17) mg/dL Creatinine 0.59 (0.52-1.04) mg/dL Estimated GFR > 60 (>60) mL/min BUN/Creatinine Ratio 33.9 H (6-22) Glucose 87 (70-100) mg/dL Calcium 9.3 (8.4-10.2) mg/dL Total Bilirubin 0.5 (0.2-1.3) mg/dL AST 23 (14-36) IU/L ALT 20 (<35) IU/L Alkaline Phosphatase 46 (38-126) U/L Total Protein 7.3 (6.3-8.2) g/dL Albumin 4.4 (3.5-5.0) g/dL Globulin 2.9 (1.7-4.1) g/dL Albumin/Globulin Ratio 1.5 (1.0-2.8) Imaging Data US - DVT: Radiologist's Impression: [address] [address] Ultrasound Report Signed Patient: Svetlana Gordon MR#: [id number] : 1970 Acct:[id number] Age/Sex: 52 / F Date of Service: 10/12/22 Loc: ED Accession Number: [id number] ?? Procedure: US periph venous up extrem rt Ordering Provider: Saira Olivares P.A-C PROCEDURE:? US PERIPH VENOUS UP EXTREM RT ? INDICATIONS:? DULL ACHE R AXILLA/ARM WORSENING ? TECHNIQUE:? Real-time imaging, as well as color and pulse Doppler interrogation, was performed of the right upper extremity deep veins from the inferior neck to the antecubital fossa.? ? COMPARISON:? None. ? FINDINGS:? The internal jugular vein, visualized portions of the subclavian vein, axillary, and brachial veins are free of intraluminal thrombus.? Where ph ysically possible, the veins are normally compressible.? Color and pulse Doppler demonstrate normal intraluminal flow, with expected phasicity and pulsatility.? Additional scanning of the cephalic and basilic veins of the superficial system demonstrate normal compressibility, without thrombus.? ? IMPRESSION:? No evidence of DVT in visualized right upper extremity veins. ? ? Dictated by: Bowen Lomeli M.D. on 10/12/2022 at 13:05 ? ? Approved by: Bowen Lomeli M.D. on 10/12/2022 at 13:05?? CT - cervical spine: My Impression: Agree with Radiology interpretation Radiologist's Impression: [address] [address] [address] Scan Report Signed Patient: Svetlana Gordon MR#: [id number] : 1970 Acct:[id number] Age/Sex: 52 / F Date of Service: 10/12/22 Loc: ED Accession Number: [id number] ?? Procedure: CT cervical spine wo con Ordering Provider: Saira Olivares P.A-C PROCEDURE:? CT CERVICAL SPINE WO CON ? INDICATIONS:? shoulder/arm pain, weakness worsening ? TECHNIQUE:? Noncontrast 3 mm thick sections acquired from the skull base to the T4 level.? Sagittal and coronal reformats were then constructed.? For radiation dose reduction, the following was used:? automated exposure control, adjustment of mA and/or kV according to patient size.? ? COMPARISON:? None. ? FINDINGS:? Image quality:? Excellent.? ? Bones:? No fractures or dislocations.? Visualized superior ribs are intact.? Mild reversal of the normal cervical lordosis.? Moderate disc height loss at C3-4, C5-6.? Mild disc height loss at C4-5 and C6-7.? ? Soft tissues:? Prevertebral soft tissues are normal in thickness.? No paravertebral hematomas.? No apical pneumothoraces.? ? ? IMPRESSION:? No acute, displaced fracture or traumatic subluxation. ? ? Dictated by: Home Taylor M.D. on 10/12/2022 at 12:56 ? ? Approved by: Home Taylor M.D. on 10/12/2022 at 12:57?? Chest x-ray: My Impression: Agree with Radiology interpretation Radiologist's Impression: [address] [address] XRay Report Signed Patient: Svetlana Gordon MR#: [id number] : 1970 Acct:[id number] Age/Sex: 52 / F Date of Service: 10/12/22 Loc: ED Accession Number: [id number] ?? Procedure: XR ribs RT min 3V w CXR1V Ordering Provider: Saira Olivares P.A-C PROCEDURE:? XR RIBS RT MIN 3V W CXR 1V ? INDICATIONS:? anterior sternum/rib pain/axilla pain ? TECHNIQUE:? 2 views of the right ribs were acquired, along with a single view ch est.? ? COMPARISON:? None. ? FINDINGS:? ? Surgical changes and devices:? None.? ? Bones and chest wall:? No fractures or dislocations.? No suspicious bony lesions.? Overlying soft tissues appear unremarkable.? Rightward scoliosis. ? Lungs and pleura:? No pleural effusions or pneumothorax.? Lungs appear clear.? ? Mediastinum:? Mediastinal contours appear normal.? Heart size is normal.? ? IMPRESSION:? No acute bony abnormality.? Dictated by: Home Taylor M.D. on 10/12/2022 at 13:17 ? ? Approved by: Home Taylor M.D. on 10/12/2022 at 13:17?? MDM Narrative Medical decision making narrative: This is a 52-year-old woman who is tearful and extremely uncomfortable concern for right shoulder and arm pain that initially began 2 months ago after doing shoulder dips and has worsened significantly in the last 2 weeks despite interventions including physical therapy, muscle relaxer, Tylenol and diclofenac. Patient has notable weakness of the right extremity, unclear if this is solely 2nd to pain however do feel this is true weakness, her sensation is intact and extremities are equal temperature with equal strong radial pulses. Patient describes a constant aching deep pain in her axilla and in her forearm, after discussion with attending physician Dr. Duran, do order a upper extremity DVT ultrasound for further evaluation given patient's symptoms history worsening pain and the fact that she is on hormonal therapy currently, in addition due to concern for radicular symptoms a CT noncontrast cervical spine is ordered as well as a chest x-ray given her original injury concerned 2 months prior was at the sternoclavicular junction. Imaging generally returns unremarkable, DVT ultrasound is negative, chest x-ray/ribs x-ray is unremarkable, and CT of the cervical spine does not clearly show etiology for patient's symptoms although the normal lordosis curvature loss is noted consistent with the patient's tight muscles and likely slight spasming, in addition disc height loss is also noted of the cervical spine. I do have concern that patient's symptoms are due to multiple things, possibly injury to the sternoclavicular margin with inflammation sustained previously, in addition to some radiculopathy /nerve c ompression which at this point appears to be affecting her strength. Patient is scheduled to follow up with her primary care provider tomorrow, I encouraged her to do this and in addition talk to them about possibly seeing payment specialist or and Neurology for further evaluation. It is possible that she would benefit from further advanced imaging such as MRI. After discussion with the patient she understands the plan, prescription today for lidocaine and new prescription for baclofen with a higher dose patient was previously on 5 mg per dose and she is placed on 10 mg per dose today her muscles in the affected area were quite tight/spasming and I suspect that this is a component of her severe pain. Patient does have fairly prominent rightward scoliosis and I suspect that this may also be affecting/related to her pain in the context of her previous injury. Patient's history and symptoms were not suggestive of cardiac etiology or respiratory/lung etiology, and additional labs or advanced imaging are not obtained. She does have a CBC and CMP today which are unremarkable. Return precautions provided, follow-up plan discussed, all questions answered. <Dede Hook, - Last Filed: 10/12/22 18:59> Lab Data Labs: Lab Results 10/12/22 10/12/22 Range/Units 13:05 13:05 WBC 6.2 (4.5-11.0) X10^3/uL RBC 4.46 (4.0-5.2) X10^6/uL Hgb 13.2 (12.0-16.0) g/dL Hct 39.6 (36-46) % MCV 88.8 (80-100) fL MCH 29.7 (26-34) PG MCHC 33.5 (30-36) % RDW 16.2 H (11.6-14.8) % Plt Count 212 (150-400) X10^3/uL Neut % (Auto) 57.9 (50-75) % Lymph % (Auto) 32.2 (25-40) % [place] % (Auto) 8.6 (3-14) % Eos % (Auto) 0.8 L (2-4) % Baso % (Auto) 0.5 (0-2) % Neut # (Auto) 3600 (6594-8524) /uL Lymph # (Auto) 2000 (2921-1024) /uL [place] # (Auto) 500 (0-900) /uL Eos # (Auto) 0 (0-450) /uL Baso # (Auto) 0 (0-100) /uL Sodium 135 L (137-145) mmol/L Potassium 4.0 (3.4-5.1) mmol/L Chloride 102 (98-107) mmol/L Carbon Dioxide 28 (22-32) mmol/L BUN 20 H (7-17) mg/dL Creatinine 0.59 (0.52-1.04) mg/dL Estimated GFR > 60 (>60) mL/min BUN/Creatinine Ratio 33.9 H (6-22) Glucose 87 (70-100) mg/dL Calcium 9.3 (8.4-10.2) mg/dL Total Bilirubin 0.5 (0.2-1.3) mg/dL AST 23 (14-36) IU/L ALT 20 (<35) IU/L Alkaline Phosphatase 46 (38-126) U/L Total Protein 7.3 (6.3-8.2) g/dL Albumin 4.4 (3.5-5.0) g/dL Globulin 2.9 (1.7-4.1) g/dL Albumin/Globulin Ratio 1.5 (1.0-2.8) Discharge Plan Departure Patient Disposition: Home Clinical Impression: Pain in right shoulder, Arm pain, right, Radiculopathy affecting upper extremity, Muscle spasm Activity Restrictions/Additional Instructions: *You have been diagnosed with [no specific diagnosis, likely radicular pain/ nerve compression] *What to do: *Please continue to take your regular medications as directed. [ 2] New medication prescriptions sent to your pharmacy: [ ] [ ] New medication written as a paper prescription [ ] No new medications given *Please follow up with your primary care provider in 2-3 days, call for an appointment. Let them know you were seen in the Emergency Department and that we ask that you be seen in follow up. We will electronically transmit a record of amilcar barrow's note if your PCP is in our system. We did do a fairly extensive evaluation today with imaging we did an ultrasound to look for possible blood clot of your right upper extremity, this was negative, we also did a chest x-ray and a CT scan of your neck. I am concerned that your symptoms could be related to nerve compression possibly stemming from your neck, possibly related to your scoliosis combined with the injury that you sustained to your sternum/ribs while doing dip exercises a few months ago. He used have some extremely tight muscles today as well on exam and it is possible that muscle spasming is the cause of some of your pain and discomfort. Unfortunately I do not have a specific new diagnosis for you at this time, I do encourage her to follow up with your primary care provider, I think you could potentially benefit from seeing orthopedics or possibly Neurology for further evaluation and would advise talking to her primary care provider about referrals for these and getting into be seen or possibly more advanced imaging for further evaluation. We did do some basic labs today as well that were all looking good. You already have a prescription for baclofen which you feel has been helping very little, I am prescribing some topical lidocaine to try or if you have not yet tried it you can try diclofenac gel which is [id number]. I do encourage you to take Tylenol as needed as well for pain. And continue working with physical therapy if you have additional appointments. *If you do not have a primary care provider please contact the [facility] Resource line at [phone]. They will ask some questions about your medical history and help get you set up with a doctor in the community. *Return to Emergency Department if you should have any new, worsening or concerning symptoms, such as [fever greater than 101 F, shaking chills, worsening pain, persistent vomiting or other bothersome symptoms] Prescriptions: New lidocaine 5 % ointment 1 applic topical TID PRN (Reason: pain) 14 Days Qty: 30 0RF baclofen 10 mg tablet 10 mg PO TID 10 Days Qty: 30 1RF No Action baclofen 5 mg tablet 5 mg PO TID Qty: 20 0RF Rx Instructions: May take 2 tablets if needed. mometasone [Nasonex] 50 MCG/PUFF spray,non-aerosol 2 spray Intranasal QDAY Qty: 17 3RF scopolamine base [Transderm-Scop] 1 mg over 3 days patch 3 day 1 patch Topical Q72H Qty: 4 0RF CMP Biest 50:50 Cream 1 mg/ml and 0.3 mg Testosterone See Rx Instructions .ROUTE .COMPLEX Qty: 30 3RF Rx Instructions: Apply 0.25 ml once daily to rotating sites per body map; Rinvoq 30 mg tablet extended release 24 hr 30 mg PO DAILY progesterone micronized 100 mg capsule See Rx Instructions .ROUTE .COMPLEX Qty: 30 6RF Dose Instruction: TAKE 1 CAPSULE BY MOUTH AT BEDTIME Rx Instructions: TAKE 1 CAPSULE BY MOUTH AT BEDTIME estradiol 0.075 mg/24 hr patch weekly 1 patch transdermal QWEEK Qty: 4 11RF Testosterone cream 0.2mg See Rx Instructions .ROUTE .COMPLEX Qty: 30 5RF Rx Instructions: 0.2mg topically daily. [facility] Referrals: Kirsten Rivera DO [Primary Care Provider] - Stand Alone Forms: Patient Portal/API <Dede Hook DO - Last Filed: 10/12/22 18:59> Cosign ED Attending Cosignature Attestation: I was immediately available in the department for consultation. Documentation has been reviewed. Case was discussed, reviewed workup.
[2022-10-12] MEDS: KETOROLAC 30 MG/ML VIAL 15 MG IM (12:23)
--- NOTE | 2022-10-12 12:24 | DI.CT.S_ITS ---
PROCEDURE: CT CERVICAL SPINE WO CON INDICATIONS: shoulder/arm pain, weakness worsening TECHNIQUE: Noncontrast 3 mm thick sections acquired from the skull base to the T4 level. Sagittal and coronal reformats were then constructed. For radiation dose reduction, the following was used: automated exposure control, adjustment of mA and/or kV according to patient size. COMPARISON: None. FINDINGS: Image quality: Excellent. Bones: No fractures or dislocations. Visualized superior ribs are intact. Mild reversal of the normal cervical lordosis. Moderate disc height loss at C3-4, C5-6. Mild disc height loss at C4-5 and C6-7. Soft tissues: Prevertebral soft tissues are normal in thickness. No paravertebral hematomas. No apical pneumothoraces. IMPRESSION: No acute, displaced fracture or traumatic subluxation. Dictated by: Home Taylor M.D. on 10/12/2022 at 12:56 Approved by: Home Taylor M.D. on 10/12/2022 at 12:57
--- NOTE | 2022-10-12 12:24 | DI.US.S_ITS ---
PROCEDURE: US PERIPH VENOUS UP EXTREM RT INDICATIONS: DULL ACHE R AXILLA/ARM WORSENING TECHNIQUE: Real-time imaging, as well as color and pulse Doppler interrogation, was performed of the right upper extremity deep veins from the inferior neck to the antecubital fossa. COMPARISON: None. FINDINGS: The internal jugular vein, visualized portions of the subclavian vein, axillary, and brachial veins are free of intraluminal thrombus. Where physically possible, the veins are normally compressible. Color and pulse Doppler demonstrate normal intraluminal flow, with expected phasicity and pulsatility. Additional scanning of the cephalic and basilic veins of the superficial system demonstrate normal compressibility, without thrombus. IMPRESSION: No evidence of DVT in visualized right upper extremity veins. Dictated by: Bowen Lomeli M.D. on 10/12/2022 at 13:05 Approved by: Bowen Lomeli M.D. on 10/12/2022 at 13:05
--- NOTE | 2022-10-12 12:28 | DI.RAD.S_ITS ---
PROCEDURE: XR RIBS RT MIN 3V W CXR 1V INDICATIONS: anterior sternum/rib pain/axilla pain TECHNIQUE: 2 views of the right ribs were acquired, along with a single view chest. COMPARISON: None. FINDINGS: Surgical changes and devices: None. Bones and chest wall: No fractures or dislocations. No suspicious bony lesions. Overlying soft tissues appear unremarkable. Rightward scoliosis. Lungs and pleura: No pleural effusions or pneumothorax. Lungs appear clear. Mediastinum: Mediastinal contours appear normal. Heart size is normal. IMPRESSION: No acute bony abnormality. Dictated by: Home Taylor M.D. on 10/12/2022 at 13:17 Approved by: Home Taylor M.D. on 10/12/2022 at 13:17
[2022-10-12 13:15] LABS: Add Manual Diff / Slide Review NO; Basophils Absolute Auto 0 /uL (0-100); Basophils Percent Auto 0.5 % (0-2); Eosinophils Absolute Auto 0 /uL (0-450); Eosinophils Percent Auto 0.8 % (2-4); Hematocrit 39.6 % (36-46); Hemoglobin 13.2 g/dL (12.0-16.0); Lymphocytes Absolute Auto 2000 /uL (1100-4500); Lymphocytes Percent Auto 32.2 % (25-40); Mean Corpuscular HGB Conc 33.5 % (30-36); Mean Corpuscular Hemoglobin 29.7 PG (26-34); Mean Corpuscular Volume 88.8 fL (80-100); Monocytes Absolute Auto 500 /uL (0-900); Monocytes Percent Auto 8.6 % (3-14); Neutrophils Absolute Auto 3600 /uL (1500-7000); Neutrophils Percent Auto 57.9 % (50-75); Platelet Count 212 X10^3/uL (150-400); Red Blood Cell Count 4.46 X10^6/uL (4.0-5.2); Red Cell Distribution Width 16.2 % (11.6-14.8); White Blood Cell Count 6.2 X10^3/uL (4.5-11.0)
[2022-10-12 13:26] LABS: Alanine Aminotransferase 20 IU/L (<35); Albumin 4.4 g/dL (3.5-5.0); Albumin Globulin Ratio 1.5 (1.0-2.8); Alkaline Phosphatase 46 U/L (38-126); Aspartate Aminotransferase 23 IU/L (14-36); BUN Creatinine Ratio 33.9 (6-22); Bilirubin Total 0.5 mg/dL (0.2-1.3); Blood Urea Nitrogen 20 mg/dL (7-17); Calcium 9.3 mg/dL (8.4-10.2); Carbon Dioxide 28 mmol/L (22-32); Chloride 102 mmol/L (98-107); Estimated Glomerular Filt Rate > 60 mL/min (>60); Globulin 2.9 g/dL (1.7-4.1); Glucose 87 mg/dL (70-100); HEMOLYSIS < 15 (0-50); Sodium 135 mmol/L (137-145); Total Protein 7.3 g/dL (6.3-8.2)
[2022-10-12 14:34] VITALS: BP 113/73; PULSE 67; RESP 16; O2SAT 100
== END 2022-10-12 14:35 | disposition home or self-care (01) ==
PROVIDERS: Emergency Provider Student in an Organized Health Care Education/Training Program; Family Provider Family Medicine; PCP Family Medicine
DX: M25.511 Pain in right shoulder (principal); R07.81 Pleurodynia; M62.838 Other muscle spasm; M54.10 Radiculopathy, site unspecified
CPT/HCPCS: 36415; 71101; 72125; 80053; 85025; 93971; 96372; 99284; J1885

== ENCOUNTER → 2022-10-23 13:05 | Outpatient (CLI) | payer OTHER, SELFPAY ==
--- NOTE | 2022-10-23 13:07 | DI.RAD.S_ITS ---
PROCEDURE: XR CERVICAL SPINE 4V OR 5V INDICATIONS: NECK PAIN TECHNIQUE: 5 views of the cervical spine acquired. COMPARISON: [facility], CT, CT CERVICAL SPINE WO [facility], 10/12/2022, 12:36. FINDINGS: Bones: No fractures or dislocations to the T2 level. Oblique images demonstrate no bony foraminal stenoses. No acute compression fractures. Multilevel cervical spondylosis with degenerative endplate changes, mild disc space loss, and endplate osteophyte formation noted from C3-4 through C5-6. Straightening of cervical lordosis which may be due to patient positioning and/or concurrent muscle spasms. Soft tissues: No prevertebral soft tissue swelling. IMPRESSION: Cervical spine without acute fracture or traumatic malalignment. Multilevel cervical spondylosis. Mild straightening of normal cervical lordosis likely related to positioning and/or concurrent muscle spasms. Dictated by: Ilir Rhodes M.D. on 10/23/2022 at 16:50 Approved by: Ilir Rhodes M.D. on 10/23/2022 at 16:52
--- NOTE | 2022-10-23 13:07 | DI.RAD.S_ITS ---
PROCEDURE: XR SHOULDER RT MIN 2V INDICATIONS: RIGHT SHOULDER PAIN TECHNIQUE: 3 views of the shoulder were acquired. COMPARISON: None. FINDINGS: Bones: No fractures or dislocations. No suspicious bony lesions. Visualized ribs appear intact. Soft tissues: No suspicious soft tissue calcifications. IMPRESSION: No acute bony abnormality. Dictated by: Home Taylor M.D. on 10/23/2022 at 16:37 Approved by: Home Taylor M.D. on 10/23/2022 at 16:38
== END ==
PROVIDERS: Family Provider Family Medicine; PCP Family Medicine; Referring Provider Anesthesiology; Visit Provider Anesthesiology
DX: M47.812 Spondylosis without myelopathy or radiculopathy, cervical region (principal); M25.511 Pain in right shoulder; M54.2 Cervicalgia
CPT/HCPCS: 72050; 73030

== ENCOUNTER 2022-11-02 12:45 | Outpatient (RCR) | payer OTHER, SELFPAY ==
--- NOTE | 2022-10-10 16:00 | PT.OIE ---
Current Diagnoses Radiculopathy, cervical region (10/10/22) Strain of other muscles, fascia and tendons at shoulder and upper arm level, right arm, initial encounter (10/10/22) Past Medical History (Last Reviewed 10/12/22 @ 18:22 by Saira Olivares PA-C) Chicken pox Colitis Colon polyps Hayfever History of UTI Hydronephrosis of right kidney Ulcerative colitis (~1989) Vaginal delivery Past Surgical History (Last Reviewed 10/12/22 @ 18:22 by Saira Olivares PA-C) History of esophagogastroduodenoscopy (EGD) (09/18/12) History of intestinal surgery (01/1969) Status post delivery Status post colonoscopy (09/18/12) Visit Care Team Role Provider Type Kirsten Rivera DO Family Provider Physician Primary Care Provider Specialty: Family Practice Address: [address] [place] [address], [place] [place], [address] Email: [email or web address] Naye Cabrera PA-C Attending Provider Advanced Escalator Mechanic Referring Provider Specialty: Emergency Medicine Address: [address] [place] [address], [address] Email: [email or web address] Physical Therapy Initial Evaluation PT-OP-A Visit Information Start: 10/06/22 15:06 Freq: Status: Active Protocol: Document 10/10/22 14:31 AMB (Rec: 10/10/22 15:45 AMB [id number]) Out-Patient Physical Therapy Visit Information Visit Information Visit Type Initial Evaluation Visit Start Time 14:30 Visit Stop Time 15:15 Total Visit Minutes 45 Visit Number 1 PT-OP-B Current Condition Start: 10/06/22 15:06 Freq: Status: Active Protocol: Document 10/10/22 14:31 AMB (Rec: 10/10/22 15:45 AMB [id number]) Current Condition History of Current Condition Onset Date 3 weeks ago Current Complaints R arm/ neck pain History of Current Condition Pt reports R arm pain all the time, aching behind the scapula and into the forearm worst around the elbow doesn't really go into the fingers. Has been trying to do some nerve glides but that increased the pain. Goes down the arm and then the pec starts to tighten up as well. Originally felt a pop in her sternum, felt like that was getting better and then went fishing and played pickle ball and the radiating pain started, has been getting worse. Personal Factors Other Personal Factors That May Effect Hx ulcerative colitis Therapy/Recovery PT-OP-C Subjective Start: 10/06/22 15:06 Freq: Status: Active Protocol: Document 10/10/22 14:30 AMB (Rec: 10/14/22 16:27 AMB [id number]) Patient Questionnaires Quick Dash- Upper Extremity Quick Dash UE Score 81 Quick Dash UE Impairment 80 to 99% Impaired (Score 80- 99) OP-PT Pain Assessment Comments Pain Comments 7/8 pain at scapula, pec and into forearm PT-OP-F Manual Assessment Start: 10/06/22 15:06 Freq: Status: Active Protocol: Document 10/10/22 14:30 AMB (Rec: 10/14/22 16:27 AMB [id number]) Manual Assessments Soft Tissue Assessment Soft Tissue Mobility Assessment Tightness throughout cervical paraspinals Joint Mobility Assessment Joint Mobility Assessment Pain with R UPA worst a C4C5 PT-OP-J Posture/Palpation/Skin Start: 10/06/22 15:06 Freq: Status: Active Protocol: Document 10/10/22 14:30 AMB (Rec: 10/14/22 16:27 AMB [id number]) Posture Evaluation Comments Posture Comments scoliosis R winging scapula, no visible AC or SC separation PT-OP-K Range of Motion Start: 10/06/22 15:06 Freq: Status: Active Protocol: Document 10/10/22 14:30 AMB (Rec: 10/14/22 16:27 AMB [id number]) Cervical Spine Range of Motion Cervical Spine Active Percentage Comments good range but pain with flexion, sidebending and rotation Shoulder Goniometric Range of Motion Shoulder ROM Limitations Comments full range of motion at the shoulder actively but does have pain at end range PT-OP-Q Treatments Start: 10/06/22 15:06 Freq: Status: Active Protocol: Document 10/10/22 14:30 AMB (Rec: 10/14/22 16:28 AMB [id number]) Therapeutic Exercises Other Exercises scapular squeeze Other Exercise Name arom don't increase pain 1 Other Exercise Name wrist stretch into flexion Manual Therapy Treatment Taping 1 Body Location kinesiotape Type of Tape Kinesio Tape Comments forearm PT-OP-T Assessment and Plan Start: 10/06/22 15:06 Freq: Status: Active Protocol: Document 10/10/22 14:30 AMB (Rec: 10/14/22 16:28 AMB [id number]) Physical Therapy Assessment Rehab Potential Rehabilitation Potential Good Evaluation Complexity Number of Personal Factors/Comorbidities 1-2 Number of Body Systems Impaired 3 Clinical Presentation at Evaluation Evolving Impairments Impairments Pain,Posture,Soft Tissue Mobility Goals Two Impairment Pain Short Term Goal (STG) Svetlana will walk with appropriate arm swing without increasing her pain. STG Duration 4 weeks Kitchen Designer Goal (LTG) Svetlana will have full cervical ROM without an increase in pain. LTG Duration 10 weeks One Impairment ADLs Short Term Goal (STG) Svetlana will be able to use her vacuum with her right hand with pain of 4/10. STG Duration 4 weeks Kitchen Designer Goal (LTG) Svetlana will don/doff her bra without increasing her right arm pain. LTG Duration 10 weeks Assessment Summary Assessment Svetlana presents with worsening pain that she describes as radiating into the forearm. Symptoms were reproduced with joint mobilization at C3-4 and C4-5 on the right. Significant pain with stretching through pec. Discussed differential diagnosis of cervical radiculopathy vs neurogenic thoracic outlet. Overall patient's symptoms are so irritable that provacative tests were deferred, although ROM and strength were full but painful at time of testing. Encouraged pt to gently move arm with walking but avoid lifting at this time (pt tends to hold arm in protective posture against torso. Encouraged pt to follow up with PCP. Physical therapy to focus on decreasing nerve tension/compression and reducing symptoms so that Svetlana can use her arm more functionally. Physical Therapy Plan Frequency and Duration Frequency of Treatment 2x/Week Duration of treatment (weeks) 10 Plan of Care Start Date 10/10/22 Plan of Care End Date 12/19/22 Therapeutic Interventions Therapeutic Interventions Home Exercise Program,Joint Mobilizations,Manual Therapy, Neuromuscular Re-education, Self-Care/Home Management, Therapeutic Activities, Therapeutic Exercises Modalities Cold Pack/Ice Massage,Electric Stimulation,Traction- Mechanical,Ultrasound Next Visit Focus/Plan Next Note Type Treatment Note Next Visit Plan Review HEP, gentle pec stretching, manual traction
--- NOTE | 2022-10-10 16:00 | PT.OPPOC ---
Physical, Occupational & Speech Therapy At [facility] Current Diagnoses Radiculopathy, cervical region (10/10/22) Strain of other muscles, fascia and tendons at shoulder and upper arm level, right arm, initial encounter (10/10/22) Visit Care Team Role Provider Type Kirsten Rivera DO Family Provider Physician Primary Care Provider Specialty: Family Practice Address: [address] [place] [address], [place], [address] Email: [email or web address] Naye Cabrera PA-C Attending Provider Advanced Transition Advisor Referring Provider Specialty: Emergency Medicine Address: [address] [place] [address], [address] Email: [email or web address] Plan Of Care PT-OP-T Assessment and Plan Start: 10/06/22 15:06 Freq: Status: Active Protocol: Document 10/10/22 14:30 AMB (Rec: 10/14/22 16:28 AMB [id number]) Physical Therapy Assessment Rehab Potential Rehabilitation Potential Good Evaluation Complexity Number of Personal Factors/Comorbidities 1-2 Number of Body Systems Impaired 3 Clinical Presentation at Evaluation Evolving Impairments Impairments Pain,Posture,Soft Tissue Mobility Goals Two Impairment Pain Short Term Goal (STG) Svetlana will walk with appropriate arm swing without increasing her pain. STG Duration 4 weeks Viner Operator Goal (LTG) Svetlana will have full cervical ROM without an increase in pain. LTG Duration 10 weeks One Impairment ADLs Short Term Goal (STG) Svetlana will be able to use her vacuum with her right hand with pain of 4/10. STG Duration 4 weeks Nursing Home Goal (LTG) Svetlana will don/doff her bra without increasing her right arm pain. LTG Duration 10 weeks Assessment Summary Assessment Svetlana presents with worsening pain that she describes as radiating into the forearm. Symptoms were reproduced with joint mobilization at C3-4 and C4-5 on the right. Significant pain with stretching through pec. Discussed differential diagnosis of cervical radiculopathy vs neurogenic thoracic outlet. Overall patient's symptoms are so irritable that provacative tests were deferred, although ROM and strength were full but painful at time of testing. Encouraged pt to gently move arm with walking but avoid lifting at this time (pt tends to hold arm in protective posture against torso. Encouraged pt to follow up with PCP. Physical therapy to focus on decreasing nerve tension/compression and reducing symptoms so that Svetlana can use her arm more functionally. Physical Therapy Plan Frequency and Duration Frequency of Treatment 2x/Week Duration of treatment (weeks) 10 Plan of Care Start Date 10/10/22 Plan of Care End Date 12/19/22 Therapeutic Interventions Therapeutic Interventions Home Exercise Program,Joint Mobilizations,Manual Therapy, Neuromuscular Re-education, Self-Care/Home Management, Therapeutic Activities, Therapeutic Exercises Modalities Cold Pack/Ice Massage,Electric Stimulation,Traction- Mechanical,Ultrasound Next Visit Focus/Plan Next Note Type Treatment Note Next Visit Plan Review HEP, gentle pec stretching, manual traction Plan of Care Dates Plan of Care Start Date 10/10/22 Plan of Care End Date 12/19/22 Electronically Signed by: Babita Solano, PT 10/15/22 8213 If you are in agreement with this Plan of Care, please return a signed and dated copy. I have reviewed this Plan of Care and certify that the skilled therapy services above are required to meet the patient?s needs. Physician Signature Date Printed Name and Credentials Clinical Instructor Signature Printed Name and Credentials
--- NOTE | 2022-10-16 15:38 | PT.OTN ---
Current Diagnoses Radiculopathy, cervical region (10/16/22) Strain of other muscles, fascia and tendons at shoulder and upper arm level, right arm, initial encounter (10/16/22) Physical Therapy Treatment Note PT-OP-A Visit Information Start: 10/06/22 15:06 Freq: Status: Active Protocol: Document 10/16/22 11:59 AMB (Rec: 10/16/22 12:54 AMB [id number]) Out-Patient Physical Therapy Visit Information Visit Information Visit Type Treatment Note Visit Start Time 12:00 Visit Stop Time 12:45 Total Visit Minutes 45 Visit Number 2 PT-OP-B Current Condition Start: 10/06/22 15:06 Freq: Status: Active Protocol: Document 10/10/22 14:31 AMB (Rec: 10/10/22 15:45 AMB [id number]) Current Condition History of Current Condition Onset Date 3 weeks ago Current Complaints R arm/ neck pain History of Current Condition Pt reports R arm pain all the time, aching behind the scapula and into the forearm worst around the elbow doesn't really go into the fingers. Has been trying to do some nerve glides but that increased the pain. Goes down the arm and then the pec starts to tighten up as well. Originally felt a pop in her sternum, felt like that was getting better and then went fishing and played pickle ball and the radiating pain started, has been getting worse. Personal Factors Other Personal Factors That May Effect Hx ulcerative colitis Therapy/Recovery PT-OP-C Subjective Start: 10/06/22 15:06 Freq: Status: Active Protocol: Document 10/16/22 11:59 AMB (Rec: 10/16/22 12:54 AMB [id number]) OP-PT Subjective Patient Comments Patient Comments Pt is on gabapentin and that has been helpful. Tape was helpful, shoulder blade squeezes increased pain. 4-5/ 10 with gabapentin. PT-OP-F Manual Assessment Start: 10/06/22 15:06 Freq: Status: Active Protocol: Document 10/10/22 14:30 AMB (Rec: 10/14/22 16:27 AMB [id number]) Manual Assessments Soft Tissue Assessment Soft Tissue Mobility Assessment Tightness throughout cervical paraspinals Joint Mobility Assessment Joint Mobility Assessment Pain with R UPA worst a C4C5 PT-OP-J Posture/Palpation/Skin Start: 10/06/22 15:06 Freq: Status: Active Protocol: Document 10/10/22 14:30 AMB (Rec: 10/14/22 16:27 AMB [id number]) Posture Evaluation Comments Posture Comments scoliosis R winging scapula, no visible AC or SC separation PT-OP-K Range of Motion Start: 10/06/22 15:06 Freq: Status: Active Protocol: Document 10/10/22 14:30 AMB (Rec: 10/14/22 16:27 AMB [id number]) Cervical Spine Range of Motion Cervical Spine Active Percentage Comments good range but pain with flexion, sidebending and rotation Shoulder Goniometric Range of Motion Shoulder ROM Limitations Comments full range of motion at the shoulder actively but does have pain at end range PT-OP-Q Treatments Start: 10/06/22 15:06 Freq: Status: Active Protocol: Document 10/16/22 11:59 AMB (Rec: 10/17/22 14:41 AMB [id number]) Therapeutic Exercises Supine Exercises pec stretch Supine Exercise Name on towel roll/foam roll Reps/Minutes 30x2 Manual Therapy Treatment Soft Tissue Mobilization 1 Body Location suboccipitals, paraspinals, pec minor, scalenes R>L Mobilization Type Trigger Point Release Intensity/Depth Moderate Body Position Hooklying Comments trigger points around R scapula Taping 1 Body Location kinesiotape Type of Tape Kinesio Tape Comments forearm similar to taping for epicondylitis to reduce wrist extension tension Manual Techniques manual traction Type cervical Body Position Hooklying Reps/Duration 3 min off and on PT-OP-T Assessment and Plan Start: 10/06/22 15:06 Freq: Status: Active Protocol: Document 10/16/22 11:59 AMB (Rec: 10/17/22 14:41 AMB [id number]) Physical Therapy Assessment Goals Two Impairment Pain Short Term Goal (STG) Svetlana will walk with appropriate arm swing without increasing her pain. STG Duration 4 weeks Weaving Instructor Goal (LTG) Svetlana will have full cervical ROM without an increase in pain. LTG Duration 10 weeks One Impairment ADLs Short Term Goal (STG) Svetlana will be able to use her vacuum with her right hand with pain of 4/10. STG Duration 4 weeks Weaving Instructor Goal (LTG) Svetlana will don/doff her bra without increasing her right arm pain. LTG Duration 10 weeks Assessment Summary Assessment Svetlana tolerated manual therapy well and is overall doing better since initiating gabepentin. Instructed in gentle pec stretch on towel roll/half foam roll with arms at 30-45d abduction. Pt continues to have increased musclar tension on R and pain with palpation through mid C- spine. Physical Therapy Plan Frequency and Duration Frequency of Treatment 2x/Week Duration of treatment (weeks) 10 Plan of Care Start Date 10/10/22 Plan of Care End Date 12/19/22 Therapeutic Interventions Therapeutic Interventions Home Exercise Program,Joint Mobilizations,Manual Therapy, Neuromuscular Re-education, Self-Care/Home Management, Therapeutic Activities, Therapeutic Exercises Modalities Cold Pack/Ice Massage,Electric Stimulation,Traction- Mechanical,Ultrasound Next Visit Focus/Plan Next Note Type Treatment Note Next Visit Plan Review HEP, gentle pec stretching, manual traction
--- NOTE | 2022-10-18 09:10 | PT.OTN ---
Current Diagnoses Radiculopathy, cervical region (10/18/22) Strain of other muscles, fascia and tendons at shoulder and upper arm level, right arm, initial encounter (10/18/22) Physical Therapy Treatment Note PT-OP-A Visit Information Start: 10/06/22 15:06 Freq: Status: Active Protocol: Document 10/18/22 08:20 SP (Rec: 10/18/22 09:19 SP [id number]) Out-Patient Physical Therapy Visit Information Visit Information Visit Type Treatment Note Visit Start Time 08:20 Visit Stop Time 09:10 Total Visit Minutes 50 Visit Number 3 Number of INTEGRATION MANAGER Visits 1 PT-OP-B Current Condition Start: 10/06/22 15:06 Freq: Status: Active Protocol: Document 10/10/22 14:31 AMB (Rec: 10/10/22 15:45 AMB [id number]) Current Condition History of Current Condition Onset Date 3 weeks ago Current Complaints R arm/ neck pain History of Current Condition Pt reports R arm pain all the time, aching behind the scapula and into the forearm worst around the elbow doesn't really go into the fingers. Has been trying to do some nerve glides but that increased the pain. Goes down the arm and then the pec starts to tighten up as well. Originally felt a pop in her sternum, felt like that was getting better and then went fishing and played pickle ball and the radiating pain started, has been getting worse. Personal Factors Other Personal Factors That May Effect Hx ulcerative colitis Therapy/Recovery PT-OP-C Subjective Start: 10/06/22 15:06 Freq: Status: Active Protocol: Document 10/18/22 08:20 SP (Rec: 10/18/22 09:19 SP [id number]) OP-PT Subjective Patient Comments Patient Comments Pt reports R arm really aches. She started her 2nd dose of Gabapentin today and hoping will help with aching and pain as day progresses. Pt reports Ktaping seemed to irritate R elbow so took off 4 hrs. PT-OP-F Manual Assessment Start: 10/06/22 15:06 Freq: Status: Active Protocol: Document 10/10/22 14:30 AMB (Rec: 10/14/22 16:27 AMB [id number]) Manual Assessments Soft Tissue Assessment Soft Tissue Mobility Assessment Tightness throughout cervical paraspinals Joint Mobility Assessment Joint Mobility Assessment Pain with R UPA worst a C4C5 PT-OP-J Posture/Palpation/Skin Start: 10/06/22 15:06 Freq: Status: Active Protocol: Document 10/10/22 14:30 AMB (Rec: 10/14/22 16:27 AMB [id number]) Posture Evaluation Comments Posture Comments scoliosis R winging scapula, no visible AC or SC separation PT-OP-K Range of Motion Start: 10/06/22 15:06 Freq: Status: Active Protocol: Document 10/10/22 14:30 AMB (Rec: 10/14/22 16:27 AMB [id number]) Cervical Spine Range of Motion Cervical Spine Active Percentage Comments good range but pain with flexion, sidebending and rotation Shoulder Goniometric Range of Motion Shoulder ROM Limitations Comments full range of motion at the shoulder actively but does have pain at end range PT-OP-Q Treatments Start: 10/06/22 15:06 Freq: Status: Active Protocol: Document 10/18/22 08:20 SP (Rec: 10/18/22 09:19 SP [id number]) Therapeutic Exercises Supine Exercises pec stretch Supine Exercise Name verbal review, pt reported started to hurt her anterior R shld/chest stopd Equipment Used on towel roll/foam roll Reps/Minutes 30x2 Sidelying Exercises open book Sidelying Exercise Name trialed in PT Side right Equipment Used arms Reps/Minutes 3 reps Sitting Exercises stretch Sitting Exercise Name scalene, [place] Side right Reps/Minutes 10 sec Comments cued slow gentle stretch Other Exercises self STMs Other Exercise Name discussed ball wall: rhomboid Side right Comments next tx recheck and introduce theracane MWM scapular squeeze Other Exercise Name arom don't increase pain Resistance seated Reps/Minutes 3 SH x5 Comments cued CS neutral Manual Therapy Treatment Soft Tissue Mobilization R scap Body Location rhomboid, T4-7 ES and paraspinals Mobilization Type Strumming,Sustained Pressure, Other Intensity/Depth Moderate Body Position Sidelying Comments gentle pressure with pt guided feedback, sustained pressure with scapular protrac/ retraction. 1 Body Location Rsuboccipitals, paraspinals, pec minor, scalenes R>L, pron T, bicep, subsca Mobilization Type Myofascial Release,Trigger Point Release Intensity/Depth Moderate Body Position Hooklying Comments trigger points around R scapula, pec minor, Good feedback releases in forearm with MF glides. Joint Mobilizations R SC, AC, 1st rib Grade I Body Position Hooklying Comments SC and AC APs 1st rib caudal w/ FM FF R scapulothoracic Direction pro/retract/UR/DR Grade II Body Position Sidelying Manual Techniques manual traction Type cervical Body Position Hooklying Reps/Duration 3 min off and on PT-OP-R Modalities Start: 10/18/22 09:46 Freq: Status: Active Protocol: Document 10/18/22 08:20 SP (Rec: 10/18/22 09:48 SP [id number]) Hot Pack/Cold Pack Treatment [facility] Location R shld Patient Position Hooklying Treatment Duration (minutes) 10 Patient Tolerance Good Comments good feedback response to [facility] end tx, states musculature more relaxed and less tension over anterior R shld leaving. PT-OP-T Assessment and Plan Start: 10/06/22 15:06 Freq: Status: Active Protocol: Document 10/18/22 08:20 SP (Rec: 10/18/22 09:19 SP [id number]) Physical Therapy Assessment Goals Two Impairment Pain Short Term Goal (STG) Svetlana will walk with appropriate arm swing without increasing her pain. STG Duration 4 weeks Melter Assistant Goal (LTG) Svetlana will have full cervical ROM without an increase in pain. LTG Duration 10 weeks One Impairment ADLs Short Term Goal (STG) Svetlana will be able to use her vacuum with her right hand with pain of 4/10. STG Duration 4 weeks Melter Assistant Goal (LTG) Svetlana will don/doff her bra without increasing her right arm pain. LTG Duration 10 weeks Assessment Summary Assessment Pt initial response supine, pain anterior R shld cues for breath and pillow support post shld and forearm. Pt good feedback response to gentle STMs with ed ball on wall interscap(next tx show theracane), small tolerated ROM open book, wall posturing, stretching and low grade mobs with FM. She report discomfort under R arm and ribcage, welcomed to [facility] for assess helpful for home use. SHe stated RUE feeling more mobility and decrease achiness and more circulation leaving with noted improved arm swing. Physical Therapy Plan Frequency and Duration Frequency of Treatment 2x/Week Duration of treatment (weeks) 10 Plan of Care Start Date 10/10/22 Plan of Care End Date 12/19/22 Therapeutic Interventions Therapeutic Interventions Home Exercise Program,Joint Mobilizations,Manual Therapy, Neuromuscular Re-education, Self-Care/Home Management, Therapeutic Activities, Therapeutic Exercises Modalities Cold Pack/Ice Massage,Electric Stimulation,Traction- Mechanical,Ultrasound Next Visit Focus/Plan Next Note Type Treatment Note Next Visit Plan Assess manual response last tx . Added open book, wall posture, stretching, self STMs , Add theracane use, elbow mob . POC: Review HEP, gentle pec stretching, manual traction
--- NOTE | 2022-10-23 12:56 | PT.OTN ---
Current Diagnoses Radiculopathy, cervical region (10/23/22) Strain of other muscles, fascia and tendons at shoulder and upper arm level, right arm, initial encounter (10/23/22) Physical Therapy Treatment Note PT-OP-A Visit Information Start: 10/06/22 15:06 Freq: Status: Active Protocol: Document 10/23/22 12:01 SP (Rec: 10/23/22 12:50 SP [id number]) Out-Patient Physical Therapy Visit Information Visit Information Visit Type Treatment Note Visit Note JAY Barbour assisted with providing pt manual STMs while under direct supervision and instruction of CHINO Macedo. Visit Start Time 12:01 Visit Stop Time 12:56 Total Visit Minutes 55 Visit Number 4 Number of CHLORINATION OPERATOR Visits 2 PT-OP-B Current Condition Start: 10/06/22 15:06 Freq: Status: Active Protocol: Document 10/10/22 14:31 AMB (Rec: 10/10/22 15:45 AMB [id number]) Current Condition History of Current Condition Onset Date 3 weeks ago Current Complaints R arm/ neck pain History of Current Condition Pt reports R arm pain all the time, aching behind the scapula and into the forearm worst around the elbow doesn't really go into the fingers. Has been trying to do some nerve glides but that increased the pain. Goes down the arm and then the pec starts to tighten up as well. Originally felt a pop in her sternum, felt like that was getting better and then went fishing and played pickle ball and the radiating pain started, has been getting worse. Personal Factors Other Personal Factors That May Effect Hx ulcerative colitis Therapy/Recovery PT-OP-C Subjective Start: 10/06/22 15:06 Freq: Status: Active Protocol: Document 10/23/22 12:01 SP (Rec: 10/23/22 12:50 SP [id number]) OP-PT Subjective Patient Comments Patient Comments Pt stated got phone call from Dr Wright's office and sending her for xray for R shld and hoping will be an opening this week for follow up. She reports not doing well today, overwhelming nerve pain, anchiness R forearm, post/ subscap and thobbing anterior R shld. Always takes time with position changes cher supine. She isn't able to do much activity. PT-OP-F Manual Assessment Start: 10/06/22 15:06 Freq: Status: Active Protocol: Document 10/10/22 14:30 AMB (Rec: 10/14/22 16:27 AMB [id number]) Manual Assessments Soft Tissue Assessment Soft Tissue Mobility Assessment Tightness throughout cervical paraspinals Joint Mobility Assessment Joint Mobility Assessment Pain with R UPA worst a C4C5 PT-OP-J Posture/Palpation/Skin Start: 10/06/22 15:06 Freq: Status: Active Protocol: Document 10/10/22 14:30 AMB (Rec: 10/14/22 16:27 AMB [id number]) Posture Evaluation Comments Posture Comments scoliosis R winging scapula, no visible AC or SC separation PT-OP-K Range of Motion Start: 10/06/22 15:06 Freq: Status: Active Protocol: Document 10/10/22 14:30 AMB (Rec: 10/14/22 16:27 AMB [id number]) Cervical Spine Range of Motion Cervical Spine Active Percentage Comments good range but pain with flexion, sidebending and rotation Shoulder Goniometric Range of Motion Shoulder ROM Limitations Comments full range of motion at the shoulder actively but does have pain at end range PT-OP-Q Treatments Start: 10/06/22 15:06 Freq: Status: Active Protocol: Document 10/23/22 12:01 SP (Rec: 10/23/22 12:50 SP [id number]) Therapeutic Exercises Supine Exercises pec stretch Supine Exercise Name Modified pec stretch Equipment Used over noodle Reps/Minutes 30x2 Comments cued w/ breath, suggested limit time 2nd latent resp Other Exercises scapular squeeze Other Exercise Name Gentle slow AROM Resistance seated Reps/Minutes x5 Comments cued CS neutral Manual Therapy Treatment Soft Tissue Mobilization R scap Body Location rhomboid, T4-7 ES, SA Mobilization Type Strumming,Sustained Pressure, Other Intensity/Depth Moderate Body Position Sidelying Comments gentle pressure with pt guided feedback 1 Body Location R subocc, parasp, pec minor, scalenes R>L, pron T, bicep, subsca Mobilization Type Myofascial Release,Trigger Point Release Intensity/Depth Moderate Body Position Hooklying Comments trigger points around R scapula, pec minor, Good feedback releases in forearm and bicep with MF glides w/ FM . Joint Mobilizations R scapulothoracic Direction pro/retract/UR/DR Grade II Body Position Sidelying PT-OP-R Modalities Start: 10/18/22 09:46 Freq: Status: Active Protocol: Document 10/23/22 12:01 SP (Rec: 10/23/22 12:50 SP [id number]) Hot Pack/Cold Pack Treatment [facility] Location R shld Patient Position Hooklying Treatment Duration (minutes) 10 Patient Tolerance Good Comments good feedback response to [facility] PT-OP-T Assessment and Plan Start: 10/06/22 15:06 Freq: Status: Active Protocol: Document 10/23/22 12:01 SP (Rec: 10/23/22 12:50 SP [id number]) Physical Therapy Assessment Goals Two Impairment Pain Short Term Goal (STG) Svetlana will walk with appropriate arm swing without increasing her pain. STG Duration 4 weeks Network Support Manager Goal (LTG) Svetlana will have full cervical ROM without an increase in pain. LTG Duration 10 weeks One Impairment ADLs Short Term Goal (STG) Svetlana will be able to use her vacuum with her right hand with pain of 4/10. STG Duration 4 weeks Retirement Goal (LTG) Svetlana will don/doff her bra without increasing her right arm pain. LTG Duration 10 weeks Assessment Summary Assessment The tx focused on manual therapy, reports good pain w/ myofascial releases at suboccipitals, pecs, bicep, pronator teres, and rhomboid region. Modified gentle passive stretch, supine over noodle, was more tolerant than foam roller. Physical Therapy Plan Frequency and Duration Frequency of Treatment 2x/Week Duration of treatment (weeks) 10 Plan of Care Start Date 10/10/22 Plan of Care End Date 12/19/22 Therapeutic Interventions Therapeutic Interventions Home Exercise Program,Joint Mobilizations,Manual Therapy, Neuromuscular Re-education, Self-Care/Home Management, Therapeutic Activities, Therapeutic Exercises Modalities Cold Pack/Ice Massage,Electric Stimulation,Traction- Mechanical,Ultrasound Next Visit Focus/Plan Next Note Type Treatment Note Next Visit Plan Assess manual response last tx , & over noodle. Review open book, wall posture, stretching , self STMs, Add theracane use , elbow mob. POC: Review HEP, gentle pec stretching, manual traction
--- NOTE | 2022-10-25 13:56 | PT.OTN ---
Current Diagnoses Radiculopathy, cervical region (10/25/22) Strain of other muscles, fascia and tendons at shoulder and upper arm level, right arm, initial encounter (10/25/22) Physical Therapy Treatment Note PT-OP-A Visit Information Start: 10/06/22 15:06 Freq: Status: Active Protocol: Document 10/25/22 12:10 [facility] (Rec: 10/25/22 13:52 [facility] [id number]) Out-Patient Physical Therapy Visit Information Visit Information Visit Type Treatment Note Visit Start Time 12:10 Visit Stop Time 13:00 Total Visit Minutes 50 Visit Number 5 Number of HEAD CASHIER Visits 0 PT-OP-B Current Condition Start: 10/06/22 15:06 Freq: Status: Active Protocol: Document 10/10/22 14:31 AMB (Rec: 10/10/22 15:45 AMB [id number]) Current Condition History of Current Condition Onset Date 3 weeks ago Current Complaints R arm/ neck pain History of Current Condition Pt reports R arm pain all the time, aching behind the scapula and into the forearm worst around the elbow doesn't really go into the fingers. Has been trying to do some nerve glides but that increased the pain. Goes down the arm and then the pec starts to tighten up as well. Originally felt a pop in her sternum, felt like that was getting better and then went fishing and played pickle ball and the radiating pain started, has been getting worse. Personal Factors Other Personal Factors That May Effect Hx ulcerative colitis Therapy/Recovery PT-OP-C Subjective Start: 10/06/22 15:06 Freq: Status: Active Protocol: Document 10/25/22 12:10 [facility] (Rec: 10/25/22 13:16 [facility] [id number]) OP-PT Subjective Patient Comments Patient Comments pt notes she really feels that her sternum started her pain symptoms. She notes she was in pain for a month after she popped her sternum with tricep dips. Svetlana notes she will tolerate the manual therapy work and it feels good until after treatment when the nerve pain is exxacerbated. She has an appointment with Dr. Wright for this next sundayOctober 30 Patient Reported Progress Same PT-OP-F Manual Assessment Start: 10/06/22 15:06 Freq: Status: Active Protocol: Document 10/10/22 14:30 AMB (Rec: 10/14/22 16:27 AMB [id number]) Manual Assessments Soft Tissue Assessment Soft Tissue Mobility Assessment Tightness throughout cervical paraspinals Joint Mobility Assessment Joint Mobility Assessment Pain with R UPA worst a C4C5 PT-OP-J Posture/Palpation/Skin Start: 10/06/22 15:06 Freq: Status: Active Protocol: Document 10/10/22 14:30 AMB (Rec: 10/14/22 16:27 AMB [id number]) Posture Evaluation Comments Posture Comments scoliosis R winging scapula, no visible AC or SC separation PT-OP-K Range of Motion Start: 10/06/22 15:06 Freq: Status: Active Protocol: Document 10/10/22 14:30 AMB (Rec: 10/14/22 16:27 AMB [id number]) Cervical Spine Range of Motion Cervical Spine Active Percentage Comments good range but pain with flexion, sidebending and rotation Shoulder Goniometric Range of Motion Shoulder ROM Limitations Comments full range of motion at the shoulder actively but does have pain at end range PT-OP-Q Treatments Start: 10/06/22 15:06 Freq: Status: Active Protocol: Document 10/25/22 12:10 [facility] (Rec: 10/25/22 13:52 [facility] [id number]) Manual Therapy Treatment Soft Tissue Mobilization 1 Body Location R subocc, parasp, pec minor, scalenes R>L, pron T, bicep, subsca Mobilization Type Myofascial Release,Trigger Point Release Intensity/Depth Moderate Body Position Hooklying Comments even gentle suboccipital release increases right side radicular symptoms Joint Mobilizations R scapulothoracic Direction pro/retract/UR/DR Grade II Body Position Sidelying Comments pt tolerated this well today, worked on gentle pec minor stretching in this position and pt tolerated this Nerve Glides median, radial, ulnar Nerve median, ulnar, radial Comments worked on nerve glides making sure not to push into any nerve pain, pt actually did really well with this and had tightness at end range of median nerve glide only Manual Techniques manual traction Type cervical Body Position Hooklying Reps/Duration 3 min off and on Comments no change in radicular symptoms with gentle cervical traction PT-OP-R Modalities Start: 10/18/22 09:46 Freq: Status: Active Protocol: Document 10/25/22 12:10 [facility] (Rec: 10/25/22 13:56 [facility] [id number]) Hot Pack/Cold Pack Treatment ice pack Location cervical spine Patient Position Supine Treatment Duration (minutes) 10 Patient Tolerance Good PT-OP-T Assessment and Plan Start: 10/06/22 15:06 Freq: Status: Active Protocol: Document 10/25/22 12:10 [facility] (Rec: 10/25/22 13:52 [facility] [id number]) Physical Therapy Assessment Assessment Summary Assessment Svetlana tends to feel good after treatment and then a hour or so after starts to feel a flare of the nerve pain . I did try ice at the end of her treatment today and went very gently with manual therapy techniques. Her x- ray taken 10/23/22 does show multilevel cervical spondylosis and endplate osteophyte formation from c3-4 trough C5-6. She will see Dr Lewis Wright on sunday for appt. to consider cortisone injection. Pt really feels that her sternum pain she felt after the pop she got from doing dips is the source of her pain. Possible thoracic outlet along with cervical radiculopathy? She did tell me today that she took prednisone for a full year to control a allergy but is off of it now. Physical Therapy Plan Frequency and Duration Frequency of Treatment 2x/Week Duration of treatment (weeks) 10 Plan of Care Start Date 10/10/22 Plan of Care End Date 12/19/22 Therapeutic Interventions Therapeutic Interventions Home Exercise Program,Joint Mobilizations,Manual Therapy, Neuromuscular Re-education, Self-Care/Home Management, Therapeutic Activities, Therapeutic Exercises Modalities Cold Pack/Ice Massage,Electric Stimulation,Traction- Mechanical,Ultrasound Next Visit Focus/Plan Next Note Type Treatment Note Next Visit Plan reassess after pt sees Dr Wright on SundayOctober 30. Continue to work on nerve decompression, pec minor release,manual cervical spine supoccpital release and gentle cervical traction, scaupla upward rotation retraining and stabilization as pt can tolerate. Assess how Svetlana felt after ice to her neck last visit
--- NOTE | 2022-10-30 16:14 | PT.OTN ---
Current Diagnoses Radiculopathy, cervical region (10/30/22) Strain of other muscles, fascia and tendons at shoulder and upper arm level, right arm, initial encounter (10/30/22) Physical Therapy Treatment Note PT-OP-A Visit Information Start: 10/06/22 15:06 Freq: Status: Active Protocol: Document 10/30/22 12:08 AMB (Rec: 10/30/22 12:53 AMB [id number]) Out-Patient Physical Therapy Visit Information Visit Information Visit Type Treatment Note Visit Start Time 12:10 Visit Stop Time 13:00 Total Visit Minutes 50 Visit Number 6 Number of MAGAZINE DESIGNER Visits 0 PT-OP-B Current Condition Start: 10/06/22 15:06 Freq: Status: Active Protocol: Document 10/10/22 14:31 AMB (Rec: 10/10/22 15:45 AMB [id number]) Current Condition History of Current Condition Onset Date 3 weeks ago Current Complaints R arm/ neck pain History of Current Condition Pt reports R arm pain all the time, aching behind the scapula and into the forearm worst around the elbow doesn't really go into the fingers. Has been trying to do some nerve glides but that increased the pain. Goes down the arm and then the pec starts to tighten up as well. Originally felt a pop in her sternum, felt like that was getting better and then went fishing and played pickle ball and the radiating pain started, has been getting worse. Personal Factors Other Personal Factors That May Effect Hx ulcerative colitis Therapy/Recovery PT-OP-C Subjective Start: 10/06/22 15:06 Freq: Status: Active Protocol: Document 10/30/22 12:00 AMB (Rec: 10/30/22 16:09 AMB [id number]) OP-PT Subjective Patient Comments Patient Comments Pt is going to get EMG and MRI , hoping soon. PT-OP-F Manual Assessment Start: 10/06/22 15:06 Freq: Status: Active Protocol: Document 10/10/22 14:30 AMB (Rec: 10/14/22 16:27 AMB [id number]) Manual Assessments Soft Tissue Assessment Soft Tissue Mobility Assessment Tightness throughout cervical paraspinals Joint Mobility Assessment Joint Mobility Assessment Pain with R UPA worst a C4C5 PT-OP-J Posture/Palpation/Skin Start: 10/06/22 15:06 Freq: Status: Active Protocol: Document 10/10/22 14:30 AMB (Rec: 10/14/22 16:27 AMB [id number]) Posture Evaluation Comments Posture Comments scoliosis R winging scapula, no visible AC or SC separation PT-OP-K Range of Motion Start: 10/06/22 15:06 Freq: Status: Active Protocol: Document 10/10/22 14:30 AMB (Rec: 10/14/22 16:27 AMB [id number]) Cervical Spine Range of Motion Cervical Spine Active Percentage Comments good range but pain with flexion, sidebending and rotation Shoulder Goniometric Range of Motion Shoulder ROM Limitations Comments full range of motion at the shoulder actively but does have pain at end range PT-OP-Q Treatments Start: 10/06/22 15:06 Freq: Status: Active Protocol: Document 10/30/22 12:00 AMB (Rec: 10/30/22 16:09 AMB [id number]) Therapeutic Exercises Supine Exercises pec stretch Supine Exercise Name Modified pec stretch Equipment Used over noodle Reps/Minutes 30x2 Comments cued w/ breath, suggested limit time 2nd latent resp Manual Therapy Treatment Soft Tissue Mobilization R scap Body Location rhomboid, T4-7 ES, SA Mobilization Type Strumming,Sustained Pressure, Other Intensity/Depth Moderate Body Position Sidelying Comments gentle pressure with pt guided feedback Joint Mobilizations R SC, AC, 1st rib Grade I Body Position Hooklying Comments SC and AC APs 1st rib caudal w/ FM FF PT-OP-R Modalities Start: 10/18/22 09:46 Freq: Status: Active Protocol: Document 10/30/22 16:09 AMB (Rec: 10/30/22 16:09 AMB [id number]) Hot Pack/Cold Pack Treatment ice pack Location cervical spine Patient Position Supine Treatment Duration (minutes) 10 Patient Tolerance Good PT-OP-T Assessment and Plan Start: 10/06/22 15:06 Freq: Status: Active Protocol: Document 10/30/22 12:08 AMB (Rec: 10/30/22 12:53 AMB [id number]) Physical Therapy Assessment Goals Two Impairment Pain Short Term Goal (STG) Svetlana will walk with appropriate arm swing without increasing her pain. STG Duration 4 weeks Mcfp Goal (LTG) Svetlana will have full cervical ROM without an increase in pain. LTG Duration 10 weeks One Impairment ADLs Short Term Goal (STG) Svetlana will be able to use her vacuum with her right hand with pain of 4/10. STG Duration 4 weeks Phone Manager Goal (LTG) Svetlana will don/doff her bra without increasing her right arm pain. LTG Duration 10 weeks Assessment Summary Assessment Svetlana responded well to gentle manual after last visit , does think PT helps for a little bit but overall continuing to be painful. Physical Therapy Plan Frequency and Duration Frequency of Treatment 2x/Week Duration of treatment (weeks) 10 Plan of Care Start Date 10/10/22 Plan of Care End Date 12/19/22 Therapeutic Interventions Therapeutic Interventions Home Exercise Program,Joint Mobilizations,Manual Therapy, Neuromuscular Re-education, Self-Care/Home Management, Therapeutic Activities, Therapeutic Exercises Modalities Cold Pack/Ice Massage,Electric Stimulation,Traction- Mechanical,Ultrasound Next Visit Focus/Plan Next Note Type Treatment Note Next Visit Plan Continue to work on nerve decompression, pec minor release,manual cervical spine supoccpital release and gentle cervical traction, scaupla upward rotation retraining and stabilization as pt can tolerate. Assess how Svetlana felt after ice to her neck last visit
--- NOTE | 2022-11-02 13:41 | PT.OTN ---
Current Diagnoses Radiculopathy, cervical region (11/02/22) Strain of other muscles, fascia and tendons at shoulder and upper arm level, right arm, initial encounter (11/02/22) Physical Therapy Treatment Note PT-OP-A Visit Information Start: 10/06/22 15:06 Freq: Status: Active Protocol: Document 11/02/22 12:49 SP (Rec: 11/02/22 13:38 SP [id number]) Out-Patient Physical Therapy Visit Information Visit Information Visit Type Treatment Note Visit Start Time 12:49 Visit Stop Time 13:41 Total Visit Minutes 52 Visit Number 7 Number of WAX ENGRAVER Visits 1 PT-OP-B Current Condition Start: 10/06/22 15:06 Freq: Status: Active Protocol: Document 10/10/22 14:31 AMB (Rec: 10/10/22 15:45 AMB [id number]) Current Condition History of Current Condition Onset Date 3 weeks ago Current Complaints R arm/ neck pain History of Current Condition Pt reports R arm pain all the time, aching behind the scapula and into the forearm worst around the elbow doesn't really go into the fingers. Has been trying to do some nerve glides but that increased the pain. Goes down the arm and then the pec starts to tighten up as well. Originally felt a pop in her sternum, felt like that was getting better and then went fishing and played pickle ball and the radiating pain started, has been getting worse. Personal Factors Other Personal Factors That May Effect Hx ulcerative colitis Therapy/Recovery PT-OP-C Subjective Start: 10/06/22 15:06 Freq: Status: Active Protocol: Document 11/02/22 12:49 SP (Rec: 11/02/22 13:38 SP [id number]) OP-PT Subjective Patient Comments Patient Comments Pt reports took 2 advil and 2 extra strength Tylenol together and took her pain away for 5 hrs, 1st time painfree. Is headed to help daughter enter dorm and thinks will helper with amount walking has to do to get through time away. She reports not seeing significant changes in pain and wanting an xray, MRI, injection so waiting on insurance approval. PT-OP-F Manual Assessment Start: 10/06/22 15:06 Freq: Status: Active Protocol: Document 10/10/22 14:30 AMB (Rec: 10/14/22 16:27 AMB [id number]) Manual Assessments Soft Tissue Assessment Soft Tissue Mobility Assessment Tightness throughout cervical paraspinals Joint Mobility Assessment Joint Mobility Assessment Pain with R UPA worst a C4C5 PT-OP-J Posture/Palpation/Skin Start: 10/06/22 15:06 Freq: Status: Active Protocol: Document 10/10/22 14:30 AMB (Rec: 10/14/22 16:27 AMB [id number]) Posture Evaluation Comments Posture Comments scoliosis R winging scapula, no visible AC or SC separation PT-OP-K Range of Motion Start: 10/06/22 15:06 Freq: Status: Active Protocol: Document 10/10/22 14:30 AMB (Rec: 10/14/22 16:27 AMB [id number]) Cervical Spine Range of Motion Cervical Spine Active Percentage Comments good range but pain with flexion, sidebending and rotation Shoulder Goniometric Range of Motion Shoulder ROM Limitations Comments full range of motion at the shoulder actively but does have pain at end range PT-OP-Q Treatments Start: 10/06/22 15:06 Freq: Status: Active Protocol: Document 11/02/22 12:49 SP (Rec: 11/02/22 13:38 SP [id number]) Therapeutic Exercises Sidelying Exercises Shld ER Sidelying Exercise Name initiated painfree range R Side right Resistance PROM Comments still feels irritating to deep shoulder blade post manual open book Sidelying Exercise Name trialed in PT Side right Equipment Used arms Reps/Minutes 3 reps Comments manual support MWM Manual Therapy Treatment Soft Tissue Mobilization R scap Body Location rhomboid, T4-7 ES, SA Mobilization Type Strumming,Sustained Pressure, Other Intensity/Depth Moderate Body Position Sidelying Comments gentle pressure with pt guided feedback 1 Body Location R subocc, parasp, pec minor, scalenes R>L, pron T, bicep, subsca Mobilization Type Myofascial Release,Trigger Point Release Intensity/Depth Moderate Body Position Hooklying Comments even gentle suboccipital release increases right side radicular symptoms Joint Mobilizations R SC, AC, 1st rib Grade I Body Position Hooklying Comments SC and AC APs 1st-4th rib caudal w/ FM FF R scapulothoracic Direction pro/retract/UR/DR Grade II Body Position Sidelying Comments pt tolerated this well today, worked on gentle pec minor stretching in this position and pt tolerated this Nerve Glides median, radial, ulnar Nerve median, radial Comments worked on nerve glides making sure not to push into any nerve pain, pt actually did really well with this and had tightness at end range of median nerve glide only PT-OP-R Modalities Start: 10/18/22 09:46 Freq: Status: Active Protocol: Document 11/02/22 12:49 SP (Rec: 11/02/22 13:38 SP [id number]) Hot Pack/Cold Pack Treatment ice pack Location R shld Patient Position Supine Treatment Duration (minutes) 10 Patient Tolerance Good PT-OP-T Assessment and Plan Start: 10/06/22 15:06 Freq: Status: Active Protocol: Document 11/02/22 12:49 SP (Rec: 11/02/22 13:38 SP [id number]) Physical Therapy Assessment Goals Two Impairment Pain Short Term Goal (STG) Svetlana will walk with appropriate arm swing without increasing her pain. STG Duration 4 weeks Jail Officer Goal (LTG) Svetlana will have full cervical ROM without an increase in pain. LTG Duration 10 weeks One Impairment ADLs Short Term Goal (STG) Svetlana will be able to use her vacuum with her right hand with pain of 4/10. STG Duration 4 weeks Jail Officer Goal (LTG) Svetlana will don/doff her bra without increasing her right arm pain. LTG Duration 10 weeks Assessment Summary Assessment Pt gives good feedback during manual more broad STMs, feels if to specific tends to hurt more later response but is helpful in the moment for pain reduction and mobility. Reviewed nerve glides post manual with reports irritated anterior R shld again so stopped. Pt welcoming to cold modality end tx, states gives some temporary relief. Physical Therapy Plan Frequency and Duration Frequency of Treatment 2x/Week Duration of treatment (weeks) 10 Plan of Care Start Date 10/10/22 Plan of Care End Date 12/19/22 Therapeutic Interventions Therapeutic Interventions Home Exercise Program,Joint Mobilizations,Manual Therapy, Neuromuscular Re-education, Self-Care/Home Management, Therapeutic Activities, Therapeutic Exercises Modalities Cold Pack/Ice Massage,Electric Stimulation,Traction- Mechanical,Ultrasound Other Referrals/Consults Referrals/Consults Recommended Pt continues to have significant pain that impedes her mobility in daily living. Recommend further imaging to R shld. Pt is awaiting MRI and injection. Next Visit Focus/Plan Next Note Type Treatment Note Next Visit Plan Continue to work on nerve decompression, pec minor release,manual cervical spine supoccpital release and gentle cervical traction, scaupla upward rotation retraining and stabilization as pt can tolerate. Assess how Svetlana felt after ice to her neck last visit
--- NOTE | 2022-11-10 09:55 | PT-OP ANOTE ---
DAIRY TESTER called pt regarding cancelled appt today with understanding message provided injured self and unable to make todays appt. DAIRY TESTER left message asking if ok to continue PT with reported injury and if so upon chart review, no further PT appts seen scheduled. PT Babita recently updated POC with 2x/wk into Dec. DAIRY TESTER offered 11/13 appt time available at 9 with LEIGH Jc and suggested update adding PT appts going forward. Discussed LEIGH Jc only seeing pts through November, 1 day/week then leaving [facility] for another position so we will need to update her with another PT to continue over see POC going forward. Asked pt to call back today to update appts, await response.
--- NOTE | 2022-12-13 15:57 | PT.OPDS ---
Current Diagnoses Radiculopathy, cervical region (11/02/22) Strain of other muscles, fascia and tendons at shoulder and upper arm level, right arm, initial encounter (11/02/22) Strain of other muscles, fascia and tendons at shoulder and upper arm level, right arm, sequela (11/02/22) Visit Care Team Role Provider Type Kirsten Rivera DO Family Provider Physician Primary Care Provider Specialty: Family Practice Address: [address] [place] [address], [place], [address] Email: [email or web address] Cabrera PA-C Attending Provider Advanced Lab Scientist Referring Provider Specialty: Emergency Medicine Address: [address] [place] [address], [address] Email: [email or web address] Visit Number Visit Number 7 Discharge Summary PT-OP-B Current Condition Start: 10/06/22 15:06 Freq: Status: Active Protocol: Document 10/10/22 14:31 AMB (Rec: 10/10/22 15:45 AMB [id number]) Current Condition History of Current Condition Onset Date 3 weeks ago Current Complaints R arm/ neck pain History of Current Condition Pt reports R arm pain all the time, aching behind the scapula and into the forearm worst around the elbow doesn't really go into the fingers. Has been trying to do some nerve glides but that increased the pain. Goes down the arm and then the pec starts to tighten up as well. Originally felt a pop in her sternum, felt like that was getting better and then went fishing and played pickle ball and the radiating pain started, has been getting worse. Personal Factors Other Personal Factors That May Effect Hx ulcerative colitis Therapy/Recovery PT-OP-C Subjective Start: 10/06/22 15:06 Freq: Status: Active Protocol: Document 11/02/22 12:49 SP (Rec: 11/02/22 13:38 SP [id number]) OP-PT Subjective Patient Comments Patient Comments Pt reports took 2 advil and 2 extra strength Tylenol together and took her pain away for 5 hrs, 1st time painfree. Is headed to help daughter enter dorm and thinks will helper with amount walking has to do to get through time away. She reports not seeing significant changes in pain and wanting an xray, MRI, injection so waiting on insurance approval. PT-OP-F Manual Assessment Start: 10/06/22 15:06 Freq: Status: Active Protocol: Document 10/10/22 14:30 AMB (Rec: 10/14/22 16:27 AMB [id number]) Manual Assessments Soft Tissue Assessment Soft Tissue Mobility Assessment Tightness throughout cervical paraspinals Joint Mobility Assessment Joint Mobility Assessment Pain with R UPA worst a C4C5 PT-OP-J Posture/Palpation/Skin Start: 10/06/22 15:06 Freq: Status: Active Protocol: Document 10/10/22 14:30 AMB (Rec: 10/14/22 16:27 AMB [id number]) Posture Evaluation Comments Posture Comments scoliosis R winging scapula, no visible AC or SC separation PT-OP-K Range of Motion Start: 10/06/22 15:06 Freq: Status: Active Protocol: Document 10/10/22 14:30 AMB (Rec: 10/14/22 16:27 AMB [id number]) Cervical Spine Range of Motion Cervical Spine Active Percentage Comments good range but pain with flexion, sidebending and rotation Shoulder Goniometric Range of Motion Shoulder ROM Limitations Comments full range of motion at the shoulder actively but does have pain at end range PT-OP-T Assessment and Plan Start: 10/06/22 15:06 Freq: Status: Active Protocol: Document 12/13/22 15:56 AMB (Rec: 12/13/22 15:57 AMB [id number]) Physical Therapy Assessment Goals Two Impairment Pain Short Term Goal (STG) Svetlana will walk with appropriate arm swing without increasing her pain. STG Duration 4 weeks Operations Administrative Assistant Goal (LTG) Svetlana will have full cervical ROM without an increase in pain. LTG Duration 10 weeks One Impairment ADLs Short Term Goal (STG) Svetlana will be able to use her vacuum with her right hand with pain of 4/10. STG Duration 4 weeks Skilled Nursing Goal (LTG) Svetlana will don/doff her bra without increasing her right arm pain. LTG Duration 10 weeks Assessment Summary Assessment Pt did not follow up wiht making more appointments, she is actively being treated by pain management s/p imaging. Physical Therapy Plan Discharge Physical Therapy Discharge Reasons No Longer Attending PT
== END 2022-12-14 14:04 | disposition home or self-care (01) ==
LOC: PHYS 12:45
PROVIDERS: Family Provider Family Medicine; PCP Family Medicine; Referring Provider Physician Assistant; Visit Provider Physician Assistant
DX: M54.12 Radiculopathy, cervical region (principal); S46.811S Strain of other muscles, fascia and tendons at shoulder and upper arm level, right arm, sequela
CPT/HCPCS: 97110; 97140; 97161; 97162

== ENCOUNTER → 2022-11-09 16:14 | Outpatient (CLI) | payer OTHER, SELFPAY ==
--- NOTE | 2022-11-09 16:15 | DI.MRI.S_ITS ---
PROCEDURE: MR SHOULDER RT WO CON INDICATIONS: Right shoulder pain TECHNIQUE: Noncontrast oblique coronal T2 fast spin echo with fat saturation, oblique sagittal T1 spin echo and T2 fast spin echo with fat saturation, axial T1 spin echo and T2 fast spin echo with fat saturation through the shoulder. COMPARISON: [facility], CR, XR SHOULDER RT MIN 2V, 10/23/2022, 13:20. FINDINGS: Image quality: Excellent. Rotator cuff: Mild supraspinatus and infraspinatus tendinosis. The teres minor tendon and subscapularis tendons are intact. There is no significant rotator cuff muscle atrophy. Bones and bursae: No acute trabecular bone injury or fracture. Small chronic traction cystic changes are seen at the posterosuperior humeral head and the greater and lesser tuberosities near the rotator cuff tendon insertions. No glenohumeral cartilage defect is seen. Mild degenerative changes are seen in the acromioclavicular joint. No significant subacromial/subdeltoid bursal fluid. No significant glenohumeral joint effusion. Capsule and soft tissues: There is nondisplaced tearing of the posterosuperior labrum with a 2 mm paralabral cyst. The proximal biceps long head tendon is intact. There is effacement of the normal fat signal in the rotator interval. The anterior band of the inferior glenohumeral ligament and the middle glenohumeral ligament are mildly thickened. IMPRESSION: 1. Nondisplaced tearing of the posterosuperior labrum with a 2 mm paralabral cyst. 2. Mild supraspinatus and infraspinatus tendinosis. No significant rotator cuff tendon tear. 3. Mild acromioclavicular joint osteoarthrosis. 4. Partial effacement of the rotator interval fat and mild thickening of the inferior and middle glenohumeral ligaments are nonspecific, but can be seen in the setting of the clinical syndrome of adhesive capsulitis. Approved by: Delvis Rudolph M.D. on 11/10/2022 at 9:45
--- NOTE | 2022-11-09 16:15 | DI.MRI.S_ITS ---
PROCEDURE: MR CERVICAL SPINE WO CON INDICATIONS: Cervical radiculopathy TECHNIQUE: Noncontrast sagittal T1 spin echo and T2 fast spin echo, sagittal STIR, foraminal oblique sagittal T2 fast spin echo, and axial gradient echo or T2 fast spin echo through the cervical spine. COMPARISON: Located Within [facility], CT, CT CERVICAL SPINE WO CON, 10/12/2022, 12:36. FINDINGS: Image quality: Excellent. Alignment and Curvature: There is loss of normal cervical lordosis. 3 mm of retrolisthesis of C4 on C5. 2 mm of retrolisthesis of C5 on C6. Bone Marrow: Marrow demonstrates normal overall signal. Mild reactive signal throughout the endplates of the cervical spine. Spinal Cord: Visualized spinal cord has normal size and signal. No cerebellar tonsillar herniation. Paraspinous Soft Tissues: No paravertebral masses. Prevertebral soft tissues are normal in thickness. C2-C3: Moderate disc desiccation. No significant canal nor foraminal stenosis. C3-C4: Moderate disc desiccation. Mild diffuse disc bulge. Mild facet and uncovertebral hypertrophy. Moderate to severe canal stenosis. Mild right cord flattening. Moderate right and mild left foraminal stenosis. C4-C5: Moderate disc desiccation. Moderate diffuse disc bulge. Mild facet and uncovertebral hypertrophy. Moderate to severe canal stenosis. Mild cord flattening. Mild right greater than left foraminal stenosis. C5-C6: Moderate disc desiccation. Mild disc height loss and diffuse disc bulge. Mild facet and uncovertebral hypertrophy. Moderate canal stenosis. Mild bilateral foraminal stenosis. C6-C7: Mild disc height loss and desiccation. Mild diffuse disc bulge with superimposed broad-based right far lateral and left posterolateral protrusions. Mild facet and uncovertebral hypertrophy. Moderate canal stenosis. Mild bilateral foraminal stenosis. C7-T1: Mild disc desiccation and diffuse disc bulge. Mild facet and uncovertebral hypertrophy. Mild canal stenosis. Mild bilateral foraminal stenosis. IMPRESSION: 1. Multilevel degenerative disc and facet disease, as well as uncovertebral hypertrophy. 2. Multilevel canal stenoses, worst at C3-C4 and C4-C5 where there is mild cord flattening. 3. Multilevel foraminal stenoses, worst at C3-C4 where there is moderate foraminal stenosis. Dictated by: Molly Leal M.D. on 11/10/2022 at 9:05 Approved by: Molly Leal M.D. on 11/10/2022 at 9:09
== END ==
PROVIDERS: Family Provider Family Medicine; PCP Family Medicine; Referring Provider Anesthesiology; Visit Provider Anesthesiology
DX: M50.11 Cervical disc disorder with radiculopathy, high cervical region (principal); M47.22 Other spondylosis with radiculopathy, cervical region; M48.02 Spinal stenosis, cervical region; M19.011 Primary osteoarthritis, right shoulder; S43.431A Superior glenoid labrum lesion of right shoulder, initial encounter; M25.511 Pain in right shoulder
CPT/HCPCS: 72141; 73221

== ENCOUNTER → 2022-11-16 08:18 | Outpatient (CLI) | payer OTHER, SELFPAY | PROVIDERS: Absent Provider Family Medicine; Family Provider Family Medicine; PCP Family Medicine; Referring Provider Anesthesiology; Visit Provider Anesthesiology | DX: M54.12 Radiculopathy, cervical region (principal) | CPT/HCPCS: 95886; 95909 ==

== ENCOUNTER 2022-12-06 09:11 | Outpatient (CLI) | payer OTHER, SELFPAY ==
[2022-12-06] VITALS (8 sets, daily range): BP systolic 100–121; BP diastolic 60–73; PULSE 71–78; RESP 11–18; TEMP 36.7; O2SAT 98–100
--- NOTE | 2022-12-06 09:12 | DI.RAD.S_ITS ---
PROCEDURE: PAIN C/T INTERLAMINAR INJECT INDICATIONS: SPINAL STENOSIS COMPARISON: [facility], MR, MR CERVICAL SPINE WO CON, 11/09/2022, 16:53. FINDINGS: Fluoroscopic spot filming was performed to verify placement of a spinal needle at the C7-T1 level, as labeled on the films. Appropriate location of the needle tip was confirmed by injection of iodinated contrast. IMPRESSION: Intraprocedural examination within normal limits. Dictated by: Jeferson Clayton M.D. on 12/06/2022 at 12:48 Approved by: Jeferson Clayton M.D. on 12/06/2022 at 12:48
[2022-12-06] MEDS: MIDAZOLAM 2 MG/2 ML VIAL 1 MG IV (09:53)
[2022-12-06] MEDS: DEXAMETHASONE 10 MG/ML VIAL INJ (09:56)
[2022-12-06] MEDS: IOPAMIDOL 15 ML VIAL 3 ML INJ (09:57)
--- NOTE | 2022-12-06 12:21 | P.PCN_ITS ---
Date/Time/Diagnoses Date of procedure: 12/06/22 Time of procedure: 09:30 Procedure Notes Physician: Darrion Wright Total Fluoroscopy time (seconds): 13 Total sedation minutes: 9 Procedure in detail & Post-procedure care: C7-T1 Interlaminar Epidural Steroid Injection Indications: Svetlana is presenting for treatment of cervical radiculopathy with neck and arm pain. Preoperative diagnosis: Cervical radiculopathy Postoperative diagnosis: Same Focused Examination: Ax3 Mood and affect are normal Vital Signs: VSS ASA: 2 Consent: Following review of allergies and potential side effects/complications, including, but not necessarily limited to, infection, allergic reaction, local tissue breakdown, stroke, temporary or permanent nerve injury, paralysis, and possible , the patient indicated that they understood and agreed to p roceed.? An informed consent document was signed by the patient, witnessed by a nurse and placed in the patient's chart.? Additionally, other treatment options including medications and physical therapy were reviewed with the patient. All questions were answered. Site was then marked. Anesthesia: After review of previous anesthetic history and IV conscious sedation, the patient was deemed safe to proceed with today's procedure with IV conscious sedation. IV sedation was accomplished with midazolam 1 mg administered by the RN after physician order. Sedation was titrated to patient comfort during the course of the procedure. Patient remained responsive to all verbal commands. Position: Prone Monitoring: NIBP, Pulse oximetry, 3 lead EKG Needle used: 18 G 3.5? Tuohy Contrast: Isovue 300-M 2 mL Injectate: Dexamethasone 10 mg followed by Normal Saline 2 mL Technique: The skin was prepped with chloraprep and then draped in a sterile fashion. Time out was performed as per protocol. Oxygen applied via NC. Skin and subcutaneous structures of the needle entry site was then infiltrated with 3 mL of lidocaine 1%. Under AP, lateral and contralateral oblique fluoroscopic control, the Tuohy needle was guided into the C7-T1 epidural space. The space was accessed with loss of resistance technique. Isovue 300-M was then injected and the spread was consistent with the epidural space. There was no evidence for intravascular or intrathecal uptake. After negative aspiration, the above- mentioned injectate was then slowly administered and the needle withdrawn. The patient expressed no unusual discomfort or paresthesias during the injection. Band-Aids applied to injection sites. EBL: less than 1 ml Complications: None Post Procedure: Patient was taken to the recovery and monitored. The patient was provided a Pain Log to continue to record the patient's response to the target- specific procedure prior to the patient's follow-up visit with the referring physician. Patient was stable upon discharge. Detailed post procedure instructions were provided. Patient was asked to call in the event of worsening pain, fever, weakness, numbness or bladder or bowel incontinence.
== END 2022-12-06 10:27 | disposition home or self-care (01) ==
LOC: RAD 09:12
PROVIDERS: Family Provider Family Medicine; PCP Family Medicine; Referring Provider Anesthesiology; Visit Provider Anesthesiology
DX: M54.12 Radiculopathy, cervical region (principal)
CPT/HCPCS: 62321; 99152; J1100; J2250

== ENCOUNTER 2023-01-03 10:20 | Outpatient (CLI) | payer OTHER, SELFPAY ==
[2023-01-03] VITALS (8 sets, daily range): BP systolic 109–130; BP diastolic 61–72; PULSE 65–87; RESP 10–22; TEMP 36; O2SAT 97–99
--- NOTE | 2023-01-03 10:21 | DI.RAD.S_ITS ---
PROCEDURE: PAIN C/T INTERLAMINAR INJECT INDICATIONS: SPONDYLOSIS COMPARISON: [facility], , PAIN C/T INTERLAMINAR INJECT, 12/06/2022, 9:52. FINDINGS: Fluoroscopic spot filming was performed to verify placement of a spinal needle at the C7-T1 level, as labeled on the films. Appropriate location of the needle tip was confirmed by injection of iodinated contrast. IMPRESSION: Intraprocedural examination within normal limits. Dictated by: Jeferson Clayton M.D. on 01/03/2023 at 17:41 Approved by: Jeferson Clayton M.D. on 01/03/2023 at 17:42
[2023-01-03] MEDS: MIDAZOLAM 2 MG/2 ML VIAL 1 MG IV (11:04)
[2023-01-03] MEDS: IOPAMIDOL 15 ML VIAL 3 ML INJ (11:07)
[2023-01-03] MEDS: DEXAMETHASONE 10 MG/ML VIAL INJ (11:07)
--- NOTE | 2023-01-03 11:52 | P.PCN_ITS ---
Date/Time/Diagnoses Date of procedure: 01/03/23 Time of procedure: 11:00 Procedure Notes Physician: Darrion Wright Total Fluoroscopy time (seconds): 18 Total sedation minutes: 9 Procedure in detail & Post-procedure care: C7-T1 Interlaminar Epidural Steroid Injection Indications: Svetlana is presenting for treatment of cervical radiculopathy with neck and arm pain. Preoperative diagnosis: Cervical radiculopathy Postoperative diagnosis: Same Focused Examination: Ax3 Mood and affect are normal Vital Signs: VSS ASA: 2 Consent: Following review of allergies and potential side effects/complications, including, but not necessarily limited to, infection, allergic reaction, local tissue breakdown, stroke, temporary or permanent nerve injury, paralysis, and possible , the patient indicated that they understood and agreed to p roceed.? An informed consent document was signed by the patient, witnessed by a nurse and placed in the patient's chart.? Additionally, other treatment options including medications and physical therapy were reviewed with the patient. All questions were answered. Site was then marked. Anesthesia: After review of previous anesthetic history and IV conscious sedation, the patient was deemed safe to proceed with today's procedure with IV conscious sedation. IV sedation was accomplished with midazolam 1 mg administered by the RN after physician order. Sedation was titrated to patient comfort during the course of the procedure. Patient remained responsive to all verbal commands. Position: Prone Monitoring: NIBP, Pulse oximetry, 3 lead EKG Needle used: 18 G 3.5? Tuohy Contrast: Isovue 300-M 2 mL Injectate: Dexamethasone 10 mg followed by Normal Saline 2 mL Technique: The skin was prepped with chloraprep and then draped in a sterile fashion. Time out was performed as per protocol. Oxygen applied via NC. Skin and subcutaneous structures of the needle entry site was then infiltrated with 3 mL of lidocaine 1%. Under AP, lateral and contralateral oblique fluoroscopic control, the Tuohy needle was guided into the C7-T1 epidural space. The space was accessed with loss of resistance technique. Isovue 300-M was then injected and the spread was consistent with the epidural space. There was no evidence for intravascular or intrathecal uptake. After negative aspiration, the above- mentioned injectate was then slowly administered and the needle withdrawn. The patient expressed no unusual discomfort or paresthesias during the injection. Band-Aids applied to injection sites. EBL: less than 1 ml Complications: None Post Procedure: Patient was taken to the recovery and monitored. The patient was provided a Pain Log to continue to record the patient's response to the target- specific procedure prior to the patient's follow-up visit with the referring physician. Patient was stable upon discharge. Detailed post procedure instructions were provided. Patient was asked to call in the event of worsening pain, fever, weakness, numbness or bladder or bowel incontinence.
== END 2023-01-03 11:40 | disposition home or self-care (01) ==
LOC: RAD 10:21
PROVIDERS: Family Provider Family Medicine; PCP Family Medicine; Referring Provider Anesthesiology; Visit Provider Anesthesiology
DX: M54.12 Radiculopathy, cervical region (principal)
CPT/HCPCS: 62321; J1100; J2250

== ENCOUNTER → 2023-01-12 | Outpatient (CLI) | payer OTHER, SELFPAY ==
--- NOTE | 2023-01-12 12:04 | DI.RAD.S_ITS ---
Bone Density Report Name: JANET TRAN Age: 52 Sex: Female Ethnicity: White Date of : 1970 Indication: postmenopausal; screening for osteoporosis; Referring Provider: ANDREW SALEH Study: Bone densitometry was performed. Exam Date: January 12, 2023 Accession number: [id number] Bone Density: Region BMD T-score Z-score Classification AP Spine(L1-L4) 0.706 -3.1 -2.1 Osteoporosis Femoral Neck (Left) 0.544 -2.7 -1.8 Osteoporosis Total Hip (Left) 0.740 -1.7 -1.0 Osteopenia Femoral Neck (Right) 0.571 -2.5 -1.5 Osteoporosis Total Hip (Right) 0.747 -1.6 -1.0 Osteopenia Total Hip Mean 0.744 -1.7 -1.0 Osteopenia World Health Organization criteria for BMD impression classify patients as: Normal (T-score at or above -1.0), Osteopenia (T-score between -1.0 and -2.5), or Osteoporosis (T-score at or below -2.5). 10-year Fracture Risk: FRAX not reported because: Some T-score for Spine Total or Hip Total or Femoral Neck at or below -2.5 Impression: The patient has osteoporosis, based on the Total Spine T-score. Discussion: HIGH RISK OF FRACTURE. BONE DENSITY IS UNDESIRABLY LOW AT ONE OR MORE SKELETAL SITES, CONSISTENT WITH OSTEOPOROSIS. ALSO, BONE DENSITY IS LOWER THAN EXPECTED FOR AGE AND SEX AT ONE OR MORE SKELETAL SITES; RECOMMEND A DILIGENT SEARCH FOR SECONDARY CAUSES OF BONE LOSS. This patient's lowest T-score meets the World Health Organization's (WHO) criteria for osteoporosis at one or more sites (T-score -2.5 or below). In untreated patients, the risk of osteoporotic fracture increases approximately two-fold for each 1.0 SD decrease in T-score. Low bone density is not the only risk factor for fracture; also consider factors such as patient's age, frailty or poor health, risk of falling, risk of injury, previous osteoporotic fracture, family history of osteoporosis, cigarette smoking, low body weight, etc. Not everyone with low bone mineral density has osteoporosis; osteomalacia and other metabolic bone disorders should also be considered. Patients who have osteoporosis should be evaluated for specific diseases and conditions (secondary causes) that may cause or contribute to bone loss. The [place] Association of Clinical Endocrinologists (AACE) and National Osteoporosis Foundation (NOF) recommend pharmacologic intervention for all postmenopausal women whose T-score is in this range. Also, this patient's bone mineral density is below the range considered normal for healthy age-, sex-, and race-matched controls at least one site (Z-score -2.0 or below). This warrants careful evaluation for diseases and conditions that may contribute to accelerated bone loss. The patient should follow a healthful lifestyle (good nutrition with adequate calcium and vitamin D, and appropriate weight-bearing exercise). Follow-Up: Consider a repeat BMD and Vertebral Fracture Assessment (VFA) exam in 2 years or sooner if medically necessary, to reassess this patient's status. Reported by: LARISSA CHAMBERS M.D on 01/12/2023 12:48:00 PM.
== END ==
PROVIDERS: Family Provider Family Medicine; PCP Family Medicine; Referring Provider Physician Assistant; Visit Provider Physician Assistant
DX: K51.90 Ulcerative colitis, unspecified, without complications (principal); Z13.820 Encounter for screening for osteoporosis; M81.0 Age-related osteoporosis without current pathological fracture; Z78.0 Asymptomatic menopausal state; Z92.23 Personal history of estrogen therapy
CPT/HCPCS: 77080

== ENCOUNTER → 2023-02-22 12:16 | Outpatient (CLI) | payer OTHER, SELFPAY ==
[2023-02-22 13:05] LABS: Add Manual Diff / Slide Review NO; Basophils Absolute Auto 0 /uL (0-100); Basophils Percent Auto 0.4 % (0-2); Eosinophils Absolute Auto 0 /uL (0-450); Eosinophils Percent Auto 0.9 % (2-4); Hematocrit 36.5 % (36-46); Hemoglobin 12.2 g/dL (12.0-16.0); Lymphocytes Absolute Auto 2200 /uL (1100-4500); Lymphocytes Percent Auto 49.6 % (25-40); Mean Corpuscular HGB Conc 33.4 % (30-36); Mean Corpuscular Hemoglobin 30.2 PG (26-34); Mean Corpuscular Volume 90.3 fL (80-100); Monocytes Absolute Auto 400 /uL (0-900); Monocytes Percent Auto 8.9 % (3-14); Neutrophils Absolute Auto 1700 /uL (1500-7000); Neutrophils Percent Auto 40.2 % (50-75); Platelet Count 185 X10^3/uL (150-400); Red Blood Cell Count 4.04 X10^6/uL (4.0-5.2); Red Cell Distribution Width 14.6 % (11.6-14.8); White Blood Cell Count 4.3 X10^3/uL (4.5-11.0)
[2023-02-22 13:43] LABS: Alanine Aminotransferase 19 IU/L (<35); Albumin 4.4 g/dL (3.5-5.0); Albumin Globulin Ratio 1.7 (1.0-2.8); Alkaline Phosphatase 37 U/L (38-126); Aspartate Aminotransferase 26 IU/L (14-36); BUN Creatinine Ratio 37.9 (6-22); Bilirubin Total 0.4 mg/dL (0.2-1.3); Blood Urea Nitrogen 22 mg/dL (7-17); C-Reactive Protein Quant < 0.5 mg/dL (<1.0); Calcium 9.4 mg/dL (8.4-10.2); Carbon Dioxide 28 mmol/L (22-32); Chloride 101 mmol/L (98-107); Estimated Glomerular Filt Rate > 60 mL/min (>60); Globulin 2.6 g/dL (1.7-4.1); Glucose 89 mg/dL (70-100); HEMOLYSIS < 15 (0-50); Potassium 4.2 mmol/L (3.4-5.1); Sodium 134 mmol/L (137-145)
== END ==
PROVIDERS: Family Provider Family Medicine; PCP Family Medicine; Referring Provider Internal Medicine; Visit Provider Internal Medicine
DX: K51.311 Ulcerative (chronic) rectosigmoiditis with rectal bleeding (principal)
CPT/HCPCS: 36415; 80053; 85025; 86140

== ENCOUNTER → 2023-04-17 15:32 | Outpatient (CLI) | payer OTHER, SELFPAY ==
--- NOTE | 2023-04-17 15:33 | DI.MG.S_ITS ---
BILATERAL DIGITAL SCREENING MAMMOGRAM 3D/2D WITH CAD: 04/17/2023 Comparison is made to exams dated: 02/26/2020 mammogram, 07/06/2015 mammogram, and 08/22/2013 mammogram - [facility]. Both breasts are heterogeneously dense, which may obscure small masses (category c / 51-75% glandular tissue). Current study was also evaluated with a Computer Aided Detection (CAD) system. No significant masses, calcifications, or other findings are seen in either breast. There has been no significant interval change. IMPRESSION: NEGATIVE There is no mammographic evidence of malignancy. A 1 year screening mammogram is recommended. Based on the Tyrer Cuzick model (a risk assessment model) the patient's lifetime risk is 10.7% and her 10 year risk is 3.1%. According to the ACR, ACS, and NCCN guidelines, an annual breast MRI exam along with mammogram is recommended if the patient's lifetime risk is 20% or greater. This exam was interpreted at Station ID: [id number]. NOTE: For mammograms, a report in lay terms will be sent to the patient. Approximately 15% of breast malignancies will not be visualized mammographically. In the management of a palpable breast mass, a negative mammogram must not discourage biopsy of a clinically suspicious lesion. Electronically Signed By: Lizzeth owens/daniel:04/18/2023 13:03:50 letter sent: Normal Exam ACR BI-RADS Category 1: Negative [id number]
== END ==
PROVIDERS: Family Provider Family Medicine; PCP Family Medicine; Referring Provider Family Medicine; Visit Provider Family Medicine
DX: Z12.31 Encounter for screening mammogram for malignant neoplasm of breast (principal)
CPT/HCPCS: 77063; 77067

== ENCOUNTER 2023-09-27 16:35 | Outpatient (RCR) | payer OTHER, SELFPAY ==
--- NOTE | 2023-09-27 17:30 | PT.OPPOC ---
Physical, Occupational & Speech Therapy At [facility] Current Diagnoses Radiculopathy, cervical region (09/27/23) Cervicalgia (09/27/23) Pain in right arm (09/27/23) Visit Care Team Role Provider Type Ai Gruber DO Primary Care Provider Physician Specialty: Medical Address: [address] [place] [address], [address], [place], [address] Email: [email or web address] Kirsten Rivera DO Family Provider Non-Staff Specialty: Family Practice Address: [address] [place] [address], [address], [place], [address] Email: [email or web address] Abimael Verde MD Attending Provider Non-Staff Referring Provider Specialty: Physical Medicine and Rehab Address: [address] [place] [address] [place], [address] Fax: Email: Plan Of Care PT-OP-T Assessment and Plan Start: 09/27/23 17:37 Freq: Status: Active Protocol: Document 09/27/23 16:50 DCW (Rec: 09/28/23 09:15 DCW [id number]) Physical Therapy Assessment Rehab Potential Rehabilitation Potential Excellent Evaluation Complexity Number of Personal Factors/Comorbidities 0 Number of Body Systems Impaired 1-2 Clinical Presentation at Evaluation Stable Impairments Impairments Functional Activities, Functional Mobility,Strength, Tone Goals Two Impairment Pt unable to participate in usual physical activities d/t shoulder injury Care Home Goal (LTG) Pt to return to pickleball with no restrictions LTG Duration 11/27/23 One Impairment Pt does not have an appropriate home exercise program Short Term Goal (STG) Pt to be independent and compliant with an appropriate HEP STG Duration 10/28/23 Assessment Summary Assessment Pt presents with minimal symptoms at this time following her Ablation, EPAT, and ECSWT treatments. Pt very happy with current pain levels , no apparent limitations to ROM. Very good strength overall, does have some slight weakness and feeling of joint instability at end-range. Pt reports her current goal is to start building strength back to prior levels without over- doing activity or having pain return. Pt does feel that if she is provided with an appropriate HEP, she is pretty comfortable performing independently. Pt was given HEP including serratus punch, horizontal adduction, D1/D2 UE PNF movements, Wall Push-ups+ , and wall slides/lift off at end range. Pt very happy with these activities. Pt did suggest canceling remaining appointments, as she felt comfortable with these activities, however then agreeable to maintaining one appointment in two weeks for follow-up just in case there were any problems with her exercises, or if they were going well enough that she wanted additional activities. Difficult to justify much more PT at this time, as pt currently not experiencing any functional deficits. Will update POC if this changes by follow-up visit. Physical Therapy Plan Frequency and Duration Frequency of Treatment Every Other Week Plan of Care Start Date 09/28/23 Plan of Care End Date 10/29/23 Therapeutic Interventions Therapeutic Interventions Home Exercise Program,Joint Mobilizations,Manual Therapy, Neuromuscular Re-education, Patient/Caregiver Education, Self-Care/Home Management,Soft Tissue Mobilization, Therapeutic Activities, Therapeutic Exercises Next Visit Focus/Plan Next Note Type Treatment Note Next Visit Plan If pt returns for additional HEP, consider prone I's, Y's, and T's, Rows, resisted Flexion/Abduction, Pec stretch Plan of Care Dates Plan of Care Start Date 09/28/23 Plan of Care End Date 10/29/23 Electronically Signed by: Alex Roberts, PT 09/28/23 0917 If you are in agreement with this Plan of Care, please return a signed and dated copy. I have reviewed this Plan of Care and certify that the skilled therapy services above are required to meet the patient?s needs. Physician Signature Date Printed Name and Credentials Clinical Instructor Signature Printed Name and Credentials
--- NOTE | 2023-09-27 17:30 | PT.OIE ---
Current Diagnoses Radiculopathy, cervical region (09/27/23) Cervicalgia (09/27/23) Pain in right arm (09/27/23) Past Medical History (Last Updated 05/02/23 @ 13:43 by Alcira Barker CMA) Allergic rhinitis, unspecified (06/04/12) Atypical chest pain Cervical radiculopathy Cervicalgia Chicken pox Colitis Colon polyps Hayfever Hydronephrosis of right kidney Labral tear of shoulder Pain in right shoulder Ulcerative colitis (~1989) Vaginal delivery Past Surgical History (Last Reviewed 11/13/22 @ 15:36 by Darrion Wright MD) History of esophagogastroduodenoscopy (EGD) (09/18/12) History of intestinal surgery (01/1969) Status post delivery Status post colonoscopy (09/18/12) Visit Care Team Role Provider Type Ai Gruber DO Primary Care Provider Physician Specialty: Medical Address: [address] [place] [address], [address], [place], [address] Email: [email or web address] Kirsten Rivera DO Family Provider Non-Staff Specialty: Family Practice Address: [address] [place] [address], [facility] [place], [address] Email: [email or web address] Abimael Verde MD Attending Provider Non-Staff Referring Provider Specialty: Physical Medicine and Rehab Address: [address] [place] [address] [place], [address] Fax: Email: Physical Therapy Initial Evaluation PT-OP-A Visit Information Start: 09/27/23 17:37 Freq: Status: Active Protocol: Document 09/27/23 16:50 DCW (Rec: 09/27/23 17:46 DCW [id number]) Out-Patient Physical Therapy Visit Information Visit Information Visit Type Initial Evaluation Visit Start Time 16:50 Visit Stop Time 17:30 Visit Number 1 Number of INTERNAL RECRUITER Visits 0 Evaluation Information Evaluation Date 09/27/23 PT-OP-B Current Condition Start: 09/27/23 17:37 Freq: Status: Active Protocol: Document 09/27/23 16:50 DCW (Rec: 09/28/23 09:15 [facility] [id number]) Current Condition History of Current Condition Onset Date ~1 year history Current Complaints Weakness/instability in right shoulder History of Current Condition Pt is a 53 year old female presenting with desire to improve strength and stability of her right shoulder after a complex injury history. Pt reports that 1-1.5 years ago, she was performing bench dips in the gym, and suddenly had a tearing/popping sensation along her sternum. Pt was in pain quite a while, then went fishing and played pickleball, and then afterward had horrible pain and constant achiness along her scapula and down her right arm. At that time, attempted PT with minimal result, did note some improvement, but stopped PT following imaging finding a labral tear. Pt underwent nerve ablation and then Extracorporeal Pulse Activation Technology (EPAT) and Extracorporeal Shockwave Therapy (ECSWT) with fantastic result. Pt is now largely pain-free, but has increased anxiety regarding return to normal activity, as she does not want to go through reinjury. Pt mostly interested in focusing for now on straight-forward, gentle strengthening for her shoulder to help with stabilization of the joint, with the stated goal of waiting ~1 year after her procedure to return to prior functional levels. Pt does have a history of scoliosis, with her right scapula winging out secondary to left thoracic scoliosis. Prior Treatments and Tests Shoulder MRI: IMPRESSION: 1. Nondisplaced tearing of the posterosuperior labrum with a 2 mm paralabral cyst. 2. Mild supraspinatus and infraspinatus tendinosis. No significant rotator cuff tendon tear. 3. Mild acromioclavicular joint osteoarthrosis. 4. Partial effacement of the rotator interval fat and mild thickening of the inferior and middle glenohumeral ligaments are nonspecific, but can be seen in the setting of the clinical syndrome of adhesive capsulitis. per Delvis Rudolph M.D. on 11/10/2022 Cervical MRI: IMPRESSION: 1. Multilevel degenerative disc and facet disease, as well as uncovertebral hypertrophy. 2. Multilevel canal stenoses, worst at C3-C4 and C4-C5 where there is mild cord flattening . 3. Multilevel foraminal stenoses, worst at C3-C4 where there is moderate foraminal stenosis. per Eris Arreguin on 11/10/2022 Treatment Goals Patient/Caregiver Goals Increased right shoulder strength and stability PT-OP-C Subjective Start: 09/27/23 17:37 Freq: Status: Active Protocol: Document 09/27/23 16:50 DCW (Rec: 09/27/23 17:46 DCW [id number]) OP-PT Subjective Patient Comments Patient Comments I'm really worried about trying anything too intense. I want to get back to working out, but I also really don't, I'm so worried about causing any more injury and getting more pain now that I'm not having any. Patient Reported Progress Improving Patient Questionnaires Neck Disability Index NDI Score = 4% Quick Dash- Upper Extremity Quick Dash UE Score 20.45% Quick Dash UE Impairment 20 to 39% Impaired (Score 20- 39) PT-OP-F Manual Assessment Start: 09/27/23 17:37 Freq: Status: Active Protocol: Document 09/27/23 16:50 DCW (Rec: 09/28/23 09:15 DCW [id number]) Manual Assessments Soft Tissue Assessment Soft Tissue Mobility Assessment Mild-moderate tightness along right parascapulars, right pec , right biceps PT-OP-J Posture/Palpation/Skin Start: 09/27/23 17:37 Freq: Status: Active Protocol: Document 09/27/23 16:50 DCW (Rec: 09/27/23 17:50 DCW [id number]) Posture Evaluation Position Sitting T-Spine Posture Fixed Scoliosis on (L) Scapula Posture (R) Rotated Up,(R) Elevated,(R ) Winged PT-OP-K Range of Motion Start: 09/27/23 17:37 Freq: Status: Active Protocol: Document 09/27/23 16:50 DCW (Rec: 09/27/23 17:49 DCW [id number]) Shoulder Goniometric Range of Motion Shoulder Right Active Shoulder ROM WFL Yes Testing Position Sitting Flexion 180 Abduction 180 External Rotation at 0 degrees Abduction 70 PT-OP-M Strength Start: 09/27/23 17:37 Freq: Status: Active Protocol: Document 09/27/23 16:50 DCW (Rec: 09/27/23 17:49 DCW [id number]) Shoulder Strength Shoulder Manual Muscle Testing Right Flexion 5 Normal Abduction (C5) 5 Normal Adduction 5 Normal External Rotation 5 Normal Internal Rotation 5 Normal Comments Scaption 5/5 PT-OP-Q Treatments Start: 09/27/23 17:37 Freq: Status: Active Protocol: Document 09/27/23 16:50 DCW (Rec: 09/27/23 17:46 DCW [id number]) Therapeutic Exercises Supine Exercises Horizontal Adduction Supine Exercise Name Horizontal Adduction Side bilateral Serratus Punch Supine Exercise Name Serratus Punch Side bilateral Sitting Exercises PNF Sitting Exercise Name D1/D2 UE Flexion Side right Resistance 2# Standing Exercises End-range flexion Standing Exercise Name Wall slide flexion to end- range, lift arm off wall to stabilize shoulder Side bilateral Wall Push-ups Standing Exercise Name Wall Push-ups+ PT-OP-T Assessment and Plan Start: 09/27/23 17:37 Freq: Status: Active Protocol: Document 09/27/23 16:50 DCW (Rec: 09/28/23 09:15 DCW [id number]) Physical Therapy Assessment Rehab Potential Rehabilitation Potential Excellent Evaluation Complexity Number of Personal Factors/Comorbidities 0 Number of Body Systems Impaired 1-2 Clinical Presentation at Evaluation Stable Impairments Impairments Functional Activities, Functional Mobility,Strength, Tone Goals Two Impairment Pt unable to participate in usual physical activities due to shoulder injury Chcf Goal (LTG) Pt to return to pickleball with no restrictions LTG Duration 11/27/23 One Impairment Pt does not have an appropriate home exercise program Short Term Goal (STG) Pt to be independent and compliant with an appropriate HEP STG Duration 10/28/23 Assessment Summary Assessment Pt presents with minimal symptoms at this time following her Ablation, EPAT, and ECSWT treatments. Pt very happy with current pain levels , no apparent limitations to ROM. Very good strength overall, does have some slight weakness and feeling of joint instability at end-range. Pt reports her current goal is to start building strength back to prior levels without over- doing activity or having pain return. Pt does feel that if she is provided with an appropriate HEP, she is pretty comfortable performing independently. Pt was given HEP including serratus punch, horizontal adduction, D1/D2 UE PNF movements, Wall Push-ups+ , and wall slides/lift off at end range. Pt very happy with these activities. Pt did suggest canceling remaining appointments, as she felt comfortable with these activities, however then agreeable to maintaining one appointment in two weeks for follow-up just in case there were any problems with her exercises, or if they were going well enough that she wanted additional activities. Difficult to justify much more PT at this time, as pt currently not experiencing any functional deficits. Will update POC if this changes by follow-up visit. Physical Therapy Plan Frequency and Duration Frequency of Treatment Every Other Week Plan of Care Start Date 09/28/23 Plan of Care End Date 10/29/23 Therapeutic Interventions Therapeutic Interventions Home Exercise Program,Joint Mobilizations,Manual Therapy, Neuromuscular Re-education, Patient/Caregiver Education, Self-Care/Home Management,Soft Tissue Mobilization, Therapeutic Activities, Therapeutic Exercises Next Visit Focus/Plan Next Note Type Treatment Note Next Visit Plan If pt returns for additional HEP, consider prone I's, Y's, and T's, Rows, resisted Flexion/Abduction, Pec stretch
--- NOTE | 2024-02-25 17:53 | PT.OPDS ---
Current Diagnoses Radiculopathy, cervical region (09/27/23) Cervicalgia (09/27/23) Pain in right arm (09/27/23) Visit Care Team Role Provider Type Ai Gruber DO Primary Care Provider Physician Specialty: Medical Address: [id number], [place], [address] Email: [email or web address] Kirsten Rivera DO Family Provider Non-Staff Specialty: Family Practice Address: Email: Abimael Verde MD Attending Provider Non-Staff Referring Provider Specialty: Physical Medicine and Rehab Address: [address] [place] [address] A, [place], [address] Fax: Email: Visit Number Visit Number 1 Discharge Summary PT-OP-B Current Condition Start: 09/27/23 17:37 Freq: Status: Active Protocol: Document 09/27/23 16:50 DCW (Rec: 09/28/23 09:15 DCW [id number]) Current Condition History of Current Condition Onset Date ~1 year history Current Complaints Weakness/instability in right shoulder History of Current Condition Pt is a 53 year old female presenting with desire to improve strength and stability of her right shoulder after a complex injury history. Pt reports that 1-1.5 years ago, she was performing bench dips in the gym, and suddenly had a tearing/popping sensation along her sternum. Pt was in pain quite a while, then went fishing and played pickleball, and then afterward had horrible pain and constant achiness along her scapula and down her right arm. At that time, attempted PT with minimal result, did note some improvement, but stopped PT following imaging finding a labral tear. Pt underwent nerve ablation and then Extracorporeal Pulse Activation Technology (EPAT) and Extracorporeal Shockwave Therapy (ECSWT) with fantastic result. Pt is now largely pain-free, but has increased anxiety regarding return to normal activity, as she does not want to go through reinjury. Pt mostly interested in focusing for now on straight-forward, gentle strengthening for her shoulder to help with stabilization of the joint, with the stated goal of waiting ~1 year after her procedure to return to prior functional levels. Pt does have a history of scoliosis, with her right scapula winging out secondary to left thoracic scoliosis. Prior Treatments and Tests Shoulder MRI: IMPRESSION: 1. Nondisplaced tearing of the posterosuperior labrum with a 2 mm paralabral cyst. 2. Mild supraspinatus and infraspinatus tendinosis. No significant rotator cuff tendon tear. 3. Mild acromioclavicular joint osteoarthrosis. 4. Partial effacement of the rotator interval fat and mild thickening of the inferior and middle glenohumeral ligaments are nonspecific, but can be seen in the setting of the clinical syndrome of adhesive capsulitis. per Delvis Rudolph M.D. on 11/10/2022 Cervical MRI: IMPRESSION: 1. Multilevel degenerative disc and facet disease, as well as uncovertebral hypertrophy. 2. Multilevel canal stenoses, worst at C3-C4 and C4-C5 where there is mild cord flattening . 3. Multilevel foraminal stenoses, worst at C3-C4 where there is moderate foraminal stenosis. per Eris Arreguin on 11/10/2022 Treatment Goals Patient/Caregiver Goals Increased right shoulder strength and stability PT-OP-C Subjective Start: 09/27/23 17:37 Freq: Status: Active Protocol: Document 09/27/23 16:50 DCW (Rec: 09/27/23 17:46 DCW [id number]) OP-PT Subjective Patient Comments Patient Comments I'm really worried about trying anything too intense. I want to get back to working out, but I also really don't, I'm so worried about causing any more injury and getting more pain now that I'm not having any. Patient Reported Progress Improving Patient Questionnaires Neck Disability Index NDI Score 250 = 4% Quick Dash- Upper Extremity Quick Dash UE Score 20.45% Quick Dash UE Impairment 20 to 39% Impaired (Score 20- 39) PT-OP-F Manual Assessment Start: 09/27/23 17:37 Freq: Status: Active Protocol: Document 09/27/23 16:50 DCW (Rec: 09/28/23 09:15 DCW [id number]) Manual Assessments Soft Tissue Assessment Soft Tissue Mobility Assessment Mild-moderate tightness along right parascapulars, right pec , right biceps PT-OP-J Posture/Palpation/Skin Start: 09/27/23 17:37 Freq: Status: Active Protocol: Document 09/27/23 16:50 DCW (Rec: 09/27/23 17:50 DCW [id number]) Posture Evaluation Position Sitting T-Spine Posture Fixed Scoliosis on (L) Scapula Posture (R) Rotated Up,(R) Elevated,(R ) Winged PT-OP-K Range of Motion Start: 09/27/23 17:37 Freq: Status: Active Protocol: Document 09/27/23 16:50 DCW (Rec: 09/27/23 17:49 DCW [id number]) Shoulder Goniometric Range of Motion Shoulder Right Active Shoulder ROM WFL Yes Testing Position Sitting Flexion 180 Abduction 180 External Rotation at 0 degrees Abduction 70 PT-OP-M Strength Start: 09/27/23 17:37 Freq: Status: Active Protocol: Document 09/27/23 16:50 DCW (Rec: 09/27/23 17:49 DCW [id number]) Shoulder Strength Shoulder Manual Muscle Testing Right Flexion 5 Normal Abduction (C5) 5 Normal Adduction 5 Normal External Rotation 5 Normal Internal Rotation 5 Normal Comments Scaption 5/5 PT-OP-T Assessment and Plan Start: 09/27/23 17:37 Freq: Status: Active Protocol: Document 02/25/24 17:52 DCW (Rec: 02/25/24 17:53 DCW [id number]) Physical Therapy Assessment Assessment Summary Assessment Pt had planned to follow-up in 1-2 weeks after her initial evaluation if she had any further questions or concerns regarding her HEP. Pt has not scheduled a follow-up, and has not been seen in more than four months. Pt will be discharged from skilled therapy at this time. Physical Therapy Plan Discharge Physical Therapy Discharge Reasons No Longer Attending PT
== END 2024-02-27 10:13 | disposition home or self-care (01) ==
LOC: PHYS 16:35
PROVIDERS: Family Provider Family Medicine; PCP Family Medicine; Referring Provider Physical Medicine & Rehabilitation Sports Medicine; Visit Provider Physical Medicine & Rehabilitation Sports Medicine
DX: M54.12 Radiculopathy, cervical region (principal); M54.2 Cervicalgia; M79.601 Pain in right arm
CPT/HCPCS: 97110; 97161

== ENCOUNTER → 2024-02-25 07:28 | Outpatient (CLI) | payer OTHER, SELFPAY ==
[2024-02-25 08:38] LABS: Add Manual Diff / Slide Review NO; Basophils Absolute Auto 0 /uL (0-100); Basophils Percent Auto 0.4 % (0-2); Eosinophils Absolute Auto 100 /uL (0-450); Eosinophils Percent Auto 1.6 % (2-4); Hematocrit 38.9 % (36-46); Lymphocytes Absolute Auto 2300 /uL (1100-4500); Lymphocytes Percent Auto 46.1 % (25-40); Mean Corpuscular HGB Conc 33.4 % (30-36); Mean Corpuscular Hemoglobin 29.7 PG (26-34); Mean Corpuscular Volume 89.1 fL (80-100); Monocytes Absolute Auto 400 /uL (0-900); Monocytes Percent Auto 8.1 % (3-14); Neutrophils Absolute Auto 2200 /uL (1500-7000); Neutrophils Percent Auto 43.8 % (50-75); Platelet Count 207 X10^3/uL (150-400); Red Blood Cell Count 4.36 X10^6/uL (4.0-5.2); Red Cell Distribution Width 15.7 % (11.6-14.8); White Blood Cell Count 4.9 X10^3/uL (4.5-11.0)
[2024-02-25 08:54] LABS: Alanine Aminotransferase 27 IU/L (<35); Albumin 4.6 g/dL (3.5-5.0); Alkaline Phosphatase 43 U/L (38-126); Aspartate Aminotransferase 33 IU/L (14-36); BUN Creatinine Ratio 19.4 (6-22); Bilirubin Total 0.6 mg/dL (0.2-1.3); Blood Urea Nitrogen 13 mg/dL (7-17); Calcium 10.1 mg/dL (8.4-10.2); Carbon Dioxide 25 mmol/L (22-32); Chloride 104 mmol/L (98-107); Cholesterol 218 mg/dL (140-199); Estimated Glomerular Filt Rate > 60 mL/min (>60); Globulin 2.3 g/dL (1.7-4.1); Glucose 92 mg/dL (70-100); HDL Cholesterol 104 mg/dL (40-60); HEMOLYSIS < 15 (0-50); LDL Cholesterol Calculated 96 mg/dL (<100); Potassium 4.2 mmol/L (3.4-5.1); Sodium 138 mmol/L (137-145); Total Protein 6.9 g/dL (6.3-8.2); Triglycerides 88 mg/dL (35-150)
[2024-02-25 08:58] LABS: High Sensitivity CRP - Cardiac < 0.3 mg/L (1.0-3.0)
[2024-02-26 07:10] LABS: Insulin Level Total 8.1 uIU/mL (2.6-24.9)
== END ==
PROVIDERS: PCP Family Medicine; Referring Provider Family Medicine; Visit Provider Family Medicine
DX: E78.00 Pure hypercholesterolemia, unspecified (principal); Z79.890 Hormone replacement therapy
CPT/HCPCS: 36415; 80053; 80061; 83525; 85025; 86140

== ENCOUNTER → 2024-03-07 15:18 | Outpatient (CLI) | payer OTHER, SELFPAY ==
--- NOTE | 2024-03-07 15:19 | DI.RAD.S_ITS ---
PROCEDURE: XR DEXA AXIAL SKELETON INDICATIONS: interval check osteoporosis COMPARISON: [facility], [place], XR DEXA AXIAL SKELETON, 01/12/2023, 12:34. FINDINGS: Lumbar Spine: Bone mineral density 0.738 g/cm2, T score -2.8, increased by 4.5%. Left Hip: Bone mineral density 0.743 g/cm2, T score -1.6, no statistically significant change. Left Femoral Neck: Bone mineral density 0.582 g/cm2, T score -2.4. Right Hip: Bone mineral density 0.755 g/cm2, T score -1.5, no statistically significant change. Right Femoral Neck: Bone mineral density 0.601 g/cm2, T score -2.2. Fracture Risk Calculation (when applicable): 10-year fracture risk of a major osteoporotic fracture 13 percent and of a hip fracture 2.5 percent. (T score greater or equal to -1.0 to: NORMAL) (T score from -1.1 to -2.4: OSTEOPENIA) (T score less than or equal to -2.5: OSTEOPOROSIS) IMPRESSION: Osteoporosis by WHO classification. Follow-up guidelines as follows: Osteoporosis: Consider a repeat DEXA and Vertebral Fracture Assessment (VFA) exam in 2 years or sooner if medically necessary, to reassess this patient's status. Osteopenia: Consider a repeat DEXA in 2-3 years to reassess this patient's status, or if there is a new clinical indication. Normal: Consider a repeat DEXA in 5 years or sooner, or if there is a new clinical indication. All treatment decisions require clinical judgment and consideration of individual patient factors, including patient preferences, comorbidities, previous drug use, risk factors not captured in the FRAX model (e.g., frailty, falls, vitamin D deficiency, increased bone turnover, interval significant decline in bone density ) and possible under- or over-estimation of fracture risk by FRAX. In addition, the NOF Guide recommends that FDA-approved medical therapies be considered in postmenopausal women and men age >= 50 years with a: * Hip or vertebral (clinical or morphometric) fracture * T-score of <=-2.5 at the spine or hip * Ten-year fracture probability by FRAX of >= 3% for hip fracture or >=20% for major osteoporotic fracture. People with diagnosed cases of osteoporosis or at high risk for fracture should have regular bone mineral density tests. For patients eligible for Medicare, routine testing is allowed once every 2 years. The testing frequency can be increased to one year for patients who have rapidly progressing disease, those who are receiving or discontinuing medical therapy to restore bone mass, or have additional risk factors. Dictated by: Stanley Pimentel M.D. on 03/07/2024 at 16:34 Approved by: Stanley Pimentel M.D. on 03/07/2024 at 16:37
== END ==
PROVIDERS: PCP Family Medicine; Referring Provider Family Medicine; Visit Provider Family Medicine
DX: M81.0 Age-related osteoporosis without current pathological fracture (principal)
CPT/HCPCS: 77080

== ENCOUNTER → 2024-06-11 15:02 | Outpatient (CLI) | payer OTHER, SELFPAY ==
--- NOTE | 2024-06-11 15:03 | DI.MG.S_ITS ---
BILATERAL DIGITAL SCREENING MAMMOGRAM 3D/2D WITH CAD: 06/11/2024 CLINICAL: Routine screening. Comparison is made to exams dated: 02/26/2020 mammogram, 04/17/2023 mammogram, and 07/06/2015 mammogram - [facility]. The breasts are heterogeneously dense, which may obscure small masses (category c / 51-75% glandular tissue). Current study was also evaluated with a Computer Aided Detection (CAD) system. No significant masses, calcifications, or other findings are seen in either breast. There has been no significant interval change. IMPRESSION: NEGATIVE There is no mammographic evidence of malignancy. A 1 year screening mammogram is recommended. Based on the Tyrer Cuzick model (a risk assessment model) the patient's lifetime risk is 10.6% and her 10 year risk is 3.2%. According to the ACR, ACS, and NCCN guidelines, an annual breast MRI exam along with mammogram is recommended if the patient's lifetime risk is 20% or greater. This exam was interpreted at Station ID: [id number]. NOTE: For mammograms, a report in lay terms will be sent to the patient. Approximately 15% of breast malignancies will not be visualized mammographically. In the management of a palpable breast mass, a negative mammogram must not discourage biopsy of a clinically suspicious lesion. Electronically Signed By: Delvis layton/daniel:06/12/2024 11:53:29 letter sent: Normal Exam ACR BI-RADS Category 1: Negative
== END ==
PROVIDERS: PCP Family Medicine; Referring Provider Family Medicine; Visit Provider Family Medicine
DX: Z12.31 Encounter for screening mammogram for malignant neoplasm of breast (principal); R92.333 Mammographic heterogeneous density, bilateral breasts
CPT/HCPCS: 77063; 77067

== ENCOUNTER → 2024-12-18 09:22 | Outpatient (CLI) | payer OTHER, SELFPAY ==
[2024-12-18 10:38] LABS: Cholesterol 196 mg/dL (140-199); HDL Cholesterol 98 mg/dL (40-60); Triglycerides 85 mg/dL (35-150)
== END ==
PROVIDERS: PCP Family Medicine; Referring Provider Family Medicine; Visit Provider Family Medicine
DX: E78.00 Pure hypercholesterolemia, unspecified (principal)
CPT/HCPCS: 36415; 80061; 82172; 83695

== ENCOUNTER → 2025-03-10 07:36 | Outpatient (CLI) | payer OTHER, SELFPAY ==
[2025-03-10 08:28] LABS: Influenza A - CEPHEID Flu A NEGATIVE (NEGATIVE); Influenza B - CEPHEID Flu B NEGATIVE (NEGATIVE)
[2025-03-10 08:31] LABS: COVID-19 CEPHEID 4-PLEX PCR Negative (Negative)
== END ==
PROVIDERS: PCP Family Medicine; Visit Provider Nurse Practitioner Family
DX: R05.1 Acute cough (principal); J02.9 Acute pharyngitis, unspecified
CPT/HCPCS: 87070; 87637

== ENCOUNTER → 2025-04-03 14:49 | Outpatient (CLI) | payer OTHER, SELFPAY ==
--- NOTE | 2025-04-03 14:50 | DI.RAD.S_ITS ---
PROCEDURE: XR DEXA AXIAL SKELETON INDICATIONS: checking for worsening osteoporosis COMPARISON: [facility], [place], XR DEXA AXIAL SKELETON, 03/07/2024, 15:27. FINDINGS: Lumbar Spine: Bone mineral density 0.755 g/cm2, T score -2.7, compared to -2.8. Left Femoral Neck: Bone mineral density 0.582 g/cm2, T score -2.4, unchanged. Left Hip: Bone mineral density 0.759 g/cm2, T score -1.5, compared to -1.6, demonstrating an approximate 2% bone mineral density gain. Fracture Risk Calculation (when applicable): 10-year fracture risk of a major osteoporotic fracture 14 percent and of a hip fracture 2.7 percent. (T score greater or equal to -1.0 to: NORMAL) (T score from -1.1 to -2.4: OSTEOPENIA) (T score less than or equal to -2.5: OSTEOPOROSIS) IMPRESSION: Relatively stable appearance of osteophyte PE knee a remaining severe in the femoral neck. Follow-up guidelines as follows: Osteoporosis: Consider a repeat DEXA and Vertebral Fracture Assessment (VFA) exam in 2 years or sooner if medically necessary, to reassess this patient's status. Osteopenia: Consider a repeat DEXA in 2-3 years to reassess this patient's status, or if there is a new clinical indication. Normal: Consider a repeat DEXA in 5 years or sooner, or if there is a new clinical indication. All treatment decisions require clinical judgment and consideration of individual patient factors, including patient preferences, comorbidities, previous drug use, risk factors not captured in the FRAX model (e.g., frailty, falls, vitamin D deficiency, increased bone turnover, interval significant decline in bone density ) and possible under- or over-estimation of fracture risk by FRAX. In addition, the NOF Guide recommends that FDA-approved medical therapies be considered in postmenopausal women and men age >= 50 years with a: * Hip or vertebral (clinical or morphometric) fracture * T-score of <=-2.5 at the spine or hip * Ten-year fracture probability by FRAX of >= 3% for hip fracture or >=20% for major osteoporotic fracture. Dictated by: Lanie Early M.D. on 04/05/2025 at 13:39 Approved by: Lanie Early M.D. on 04/05/2025 at 13:40
== END ==
LOC: RAD 14:49
PROVIDERS: PCP Family Medicine; Referring Provider Family Medicine; Visit Provider Family Medicine
DX: M81.0 Age-related osteoporosis without current pathological fracture (principal)
CPT/HCPCS: 77080

== ENCOUNTER → 2025-04-11 10:01 | Outpatient (CLI) | payer OTHER, SELFPAY ==
[2025-04-11 12:03] LABS: Cholesterol 233 mg/dL (140-199); HDL Cholesterol 100 mg/dL (40-60); Triglycerides 108 mg/dL (35-150)
== END ==
PROVIDERS: PCP Family Medicine; Referring Provider Family Medicine; Visit Provider Family Medicine
DX: E78.00 Pure hypercholesterolemia, unspecified (principal); M81.0 Age-related osteoporosis without current pathological fracture
CPT/HCPCS: 36415; 80061; 82523

== ENCOUNTER → 2025-04-13 15:34 | Outpatient (CLI) | payer OTHER, SELFPAY ==
[2025-04-13 18:10] LABS: Vitamin D 25 Hydroxy (D3) 111 ng/mL (30.0-100.0)
== END ==
PROVIDERS: PCP Family Medicine; Referring Provider Family Medicine; Visit Provider Family Medicine
DX: E55.9 Vitamin D deficiency, unspecified (principal)
CPT/HCPCS: 36415; 82306

== ENCOUNTER → 2025-05-05 09:35 | Outpatient (CLI) | payer OTHER, SELFPAY ==
[2025-05-05 10:05] LABS: Add Manual Diff / Slide Review NO; Hematocrit 40.8 % (36-46); Hemoglobin 13.6 g/dL (12.0-16.0); Lymphocytes Absolute Auto 1700 /uL (1100-4500); Mean Corpuscular HGB Conc 33.3 % (30-36); Mean Corpuscular Hemoglobin 29.4 PG (26-34); Mean Corpuscular Volume 88.3 fL (80-100); Platelet Count 197 X10^3/uL (150-400)
[2025-05-05 10:25] LABS: Alanine Aminotransferase 19 IU/L (<35); Albumin 4.5 g/dL (3.5-5.0); Albumin Globulin Ratio 1.8 (1.0-2.8); Alkaline Phosphatase 39 U/L (38-126); Globulin 2.5 g/dL (1.7-4.1); HEMOLYSIS < 15 (0-50); Total Protein 7.0 g/dL (6.3-8.2)
[2025-05-05 10:28] LABS: HEMOLYSIS < 15 (0-50); Iron 93 ug/dL (37-170)
[2025-05-05 10:40] LABS: Percent Iron Saturation 29 % (15-50); Total Iron Binding Capacity 316 ug/dL (265-497); Transferrin 283 mg/dL (206-381)
[2025-05-05 11:00] LABS: Ferritin 19 ng/mL (11-264)
[2025-05-05 11:17] LABS: Vitamin B12 774 pg/mL (239-931)
== END ==
PROVIDERS: PCP Family Medicine; Referring Provider Family Medicine; Visit Provider Family Medicine
DX: K51.011 Ulcerative (chronic) pancolitis with rectal bleeding (principal)
CPT/HCPCS: 36415; 80076; 82607; 82728; 83540; 83550; 85025